=== PATIENT | male | born 1945 | race Caucasian/White ===

== ENCOUNTER 2018-06-24 07:31 | Emergency (ER) | payer MEDICARE, OTHER ==
[~2018-06-24] VITALS: Ht 195.6 cm; Wt 101.8 kg
[2018-06-24 07:38] VITALS: Ht 195.6 cm; Wt 101.8 kg
[2018-06-24] MEDS ORDERED: ADVAIR HFA 230-12 GM INH (07:40)
[2018-06-24] MEDS ORDERED: ZESTRIL40 MG PO (07:40)
[2018-06-24] MEDS ORDERED: CIALIS2.5 MG PO (07:41)
[2018-06-24] MEDS ORDERED: PACERONE200 MG PO ×2 (07:41→08:10)
[2018-06-24] MEDS ORDERED: FLOMAX0.4 MG PO (07:42)
[2018-06-24] MEDS ORDERED: NORVASC5 MG PO (07:42)
[2018-06-24] MEDS ORDERED: NIASPAN500 MG PO (07:43)
[2018-06-24] MEDS ORDERED: SINGULAIR10 MG PO (07:43)
[2018-06-24] MEDS ORDERED: RESTORIL15 MG PO (07:43)
[2018-06-24] MEDS ORDERED: FOLATE0.4 MG PO (07:44)
[2018-06-24] MEDS ORDERED: COLACE50 MG/5 ML PO (07:44)
[2018-06-24] MEDS ORDERED: BAYER CHEWABLE81 MG PO (07:44)
[2018-06-24] MEDS ORDERED: ELIQUIS5 MG PO (08:05)
[2018-06-24 08:07] LABS: BASOPHILS 0.3 % (0-2); HEMATOCRIT 41.9 % (42.0-54.0); HEMOGLOBIN 14.5 g/dL (13.5-17.5); IMMATURE GRANULOCYTES 0.2 % (0-5); MCH 30.1 pg (26.0-34.0); MCHC 34.6 g/dL (31.0-37.0); MCV 87.1 fL (80.0-100.0); MEAN PLATELET VOLUME 9.5 fL (7.4-10.4); MONOCYTES 9.5 % (2-11); PLATELET COUNT 182 10x3/uL (130-400); RBC 4.81 10x6/uL (4.20-6.10); WBC 6.4 10x3/uL (4.8-10.8)
[2018-06-24 08:32] LABS: ALBUMIN 3.5 g/dL (3.4-5.0); ALKALINE PHOSPHATASE 80 U/L (46-116); ALT (SGPT) 26 U/L (10-68); BILIRUBIN - TOTAL 1.12 mg/dL (0.2-1.3); CALC OSMOLALITY 285 mosm/kg (275-300); CALCIUM 8.7 mg/dL (8.5-10.1); CARBON DIOXIDE 29.9 mmol/L (21.0-32.0); CHLORIDE - SERUM 106 mmol/L (98-107); CREATININE - SERUM 0.8 mg/dL (0.6-1.3); GLUCOSE 114 mg/dL (74-106); POTASSIUM - SERUM 3.3 mmol/L (3.5-5.1); SODIUM 144 mmol/L (136-145); UREA NITROGEN 6 mg/dL (7-18); eGFR NON AFRICAN AMERICAN > 90 mL/min (90-120)
[2018-06-24 08:47] LABS: CKMB 3.1 U/L (0.0-3.6); CREATINE KINASE 199 UL (21-232); T4 THYROXIN - FREE 0.95 ng/dL (0.76-1.46); T4 THYROXINE 7.6 ug/dL (4.7-13.3); TROPONIN-I 0.023 ng/mL (0.000-0.060)
[2018-06-24 10:22] VITALS: BP 136/89
== END 2018-06-24 10:22 | disposition home or self-care (01) ==
LOC: D.ER 07:31
PROVIDERS: Emergency Medicine
DX: I48.0 Paroxysmal atrial fibrillation (principal); J44.9 Chronic obstructive pulmonary disease, unspecified

== ENCOUNTER 2018-08-31 11:06 | Inpatient (IN) | payer MEDICARE, OTHER ==
[~2018-08-31] VITALS: Ht 195.6 cm; Wt 109.1 kg
--- NOTE | ~2018-08-31 | HEMODYNAMI ---
PATIENT:RUI MUJICA MEDICAL RECORD: [id number] : 49 LOCATION:[address] [facility] [id number] ADMISSION DATE: 08/31/18 Generatedon:09/02/20189:12 Patient name: URI MUJICA Patient #: [id number] SSN: : 1945 Date of study: 09/02/2018 Page: Of Hemodynamic Procedure Report Patient Data Patient Demographics Procedure consent was obtained First Name: RUI Gender: Male Last Name: GUANAKO : 1945 [facility] Initial: R Age: 72 year(s) Patient #: [id number] Race: Unknown Additional ID: [id number] Contact details Address: [address] [place] [address] [place] State: [place] City: [place] Zip code: [address] Past Medical History Allergies: No known allergies Admission Admission Data Admission Date: 08/31/2018 Admission Time: 14:07 Room #: 2125 Procedure Procedure Types Cath Procedure Diagnostic Procedure LHC LHC w/Coronaries Procedure Description Procedure Date Procedure Date: 09/02/2018 Procedure Start Time: 9:04 Procedure End Time: 9:09 Procedure Staff Name Function Norman Bush MD Performing Physician Emery Thorpe RN Nurse Shayan Moreno RT Scrub Bette Ruiz RT Monitor Procedure Data Cath Procedure Fluoroscopy Diagnostic fluoroscopy Total fluoroscopy Time: 1.1 time: 1.1 min min Diagnostic fluoroscopy Total fluoroscopy dose: 648 dose: 648 mGy mGy Contrast Material Contrast Material Type Amount (ml) Isovue 300 47 Entry Location Entry Primary Successful Side Size Upsize Upsize Entry Closure Wylie ccessful Closure Location (Fr) 1 (Fr) 2 (Fr) Remarks Device Remarks Radial Right 6 Fr Mechanical artery Short Compression Estimated blood loss: 10 ml Diagnostic catheters Device Type Used For End Catheter Placement DIAGNOSTIC Layton 110cm 5 LV Angiography Fr catheter ([id number]) DIAGNOSTIC Layton 110cm 5 Left Coronary Fr catheter ([id number]) Angiography DIAGNOSTIC Layton 110cm 5 Right Coronary Fr catheter (655473) Angiography Procedure Complications No complications Procedure Medications Medication Administration Route Dosage 0.9% NaCl I.V. 100 ml/hr Oxygen etCO2 Nasal cannula 2 l/min Heparin Flush Bag added to field 2 bags (1000units/500ml NS) Lidocaine 2% added to field 20 Radial Cocktail added to field 1 syringe (Verapomil 2mg/Nitro 400mcg/Heparin 1500units) Versed I.V. 2 mg Fentanyl I.V. 100 mcg Radial Cocktail I.A. 1 syringe (Verapomil 2mg/Nitro 400mcg/Heparin 1500units) Benadryl I.V. 50 mg Hemodynamics Rest Heart Rate: 103 (bpm) Snapshots Pre Cath Intra NCS Post Cath Vital Signs Time Heart Resp SPO2 etCO2 NIBP (mmHg) Rhythm Pain Sedation Rate (ipm) (%) (mmHg) Status Level (bpm) 8:51:15 101 20 90 0 152/113(136) A-Fib 0 (11) 10(A) , No pain 8:55:37 99 22 88 0 151/101(131) A-Fib 0 (11) 10(A) , No pain 8:59:53 109 25 90 22.6 137/119(133) A-Fib 0 (11) 10(A) , No pain 9:04:07 110 17 92 11.3 149/93(128) A-Fib 0 (11) 9(A) , No pain 9:08:19 88 26 92 18.1 136/97(112) A-Fib 0 (11) 9(A) , No pain Medications Time Medication Route Dose Verified Delivered Reason Notes Effectiveness by by 8:56:45 0.9% NaCl I.V. 100 Emery Emery Per ml/hr Ila Thorpe physician RN RN 8:56:57 Oxygen etCO2 2 l/min Emery Emery for low 02 Nasal Lorigan Ila sats cannula RN RN 8:57:10 Heparin Flush added 2 bags Emery Emery used for Bag to Lorigan Michelleigan procedure (1000units/500ml field RN RN NS) 8:58:01 Lidocaine 2% added 20ml Emery Emery for local to vial Lorigan Lorigan anesthetic field RN RN 8:58:14 Radial Cocktail added 1 Emery Emery used for (Verapomil to syringe Lorigan Lorigan procedure 2mg/Nitro field RN RN 400mcg/Heparin 1500units) 9:00:23 Benadryl I.V. 50 mg Emery Emery Per Ila rose RN RN 9:01:51 Versed I.V. 2 mg Emery Emery for sedation Ila Thorpe RN RN 9:01:59 Fentanyl I.V. 100 mcg Emery Emery for sedation Ila Thorpe RN RN 9:04:25 Radial Cocktail I.A. 1 Emery Norman for (Verapomil syringe Ila Bush MD vasodilation 2mg/Nitro RN 400mcg/Heparin 1500units) Procedure Log Time Note 8:28:17 Time tracking: Call back (After hours or weekends) 8:28:21 Plan of Care:Hemodynamics will remain stable., Cardiac rhythm will remain stable., Comfort level will be maintained., Respiratory function will remain adequate., Patient/ family verbilizes understanding of procedure., Procedure tolerated without complication., Recovers from procedure without complications.. 8:28:24 Bette Counts RT(R) sent for patient. Start room use. 8:46:35 Patient received from Med II to CCL 1 Alert and oriented. Tansferred to table in Supine position. 8:46:36 Warm blankets applied, and savita hugger turned on for patient comfort. 8:46:36 Correct patient and procedure confirmed by team. 8:46:38 Signed procedure consent form obtained from patient. 8:46:39 ECG and BP/O2 sat monitors applied to patient. 8:46:39 Pre-procedure instructions explained to patient. 8:46:40 Pre-op teaching completed and patient verbalized understanding. 8:46:41 Family in patients room. 8:50:10 Vital chart was started 8:50:13 Rhythm: atrial fibrillation 8:56:45 0.9% NaCl 100 ml/hr I.V. was administered by Emery Thorpe RN; Per physician; 8:56:57 Oxygen 2 l/min etCO2 Nasal cannula was administered by Emery Thorpe RN; for low 02 sats; 8:57:01 Full Disclosure recording started 8:57:09 H&P Date Dictated: 08/31/2018 Within 30 days and on chart.. 8:57:10 Heparin Flush Bag (1000units/500ml NS) 2 bags added to field was administered by Emery Lorigan RN; used for procedure; 8:57:11 Patient NPO since Midnight. 8:57:21 Patient allergic to No known allergies 8:57:24 Is the patient allergic to Iodine/contrast media? No. 8:57:28 Is patient on blood thinner?Yes 8:58:01 Lidocaine 2% 20ml vial added to field was administered by Emery Thorpe RN; for local anesthetic; 8:58:14 Radial Cocktail (Verapomil 2mg/Nitro 400mcg/Heparin 1500units) 1 syringe added to field was administered by Emery Thorpe RN; used for procedure; 8:59:53 Patient diabetic? No. 8:59:56 Previous problem with sedation/anesthesia? No ? 8:59:57 Snore? Yes 8:59:58 Sleep apnea? Yes 8:59:59 Deviated septum? No 8:59:59 Opens mouth fully? Yes 9:00:00 Sticks out tongue? Yes 9:00:06 Airway obstruction? Yes BRONCHITIS 9:00:09 Dentures? No ? 9:00:21 XARELTO 08/31/18 9:00:23 Benadryl 50 mg I.V. was administered by Emery Thorpe RN; Per physician; 9:00:25 Pre procedure: right dorsailis pedis pulse 2+ Normal; easily identifiable; not easily obliterated 9:00:27 Modified Solomon's test Ulnar < 7 seconds 9:00:28 Patient pain scale 0/10 ?. 9:00:38 IV patent on arrival in right antecubital with 0.9% NaCl at O. 9:00:40 Lab results completed and on chart. 9:00:44 Right Radial & Right Groin area was prepped with chlora-prep and draped in sterile fashion 9:00:44 Alarms reviewed by R. N. 9:00:45 Sharps counted by scrub and verified by R.N. 9:00:45 Final Timeout: patient, procedure, and site verified with staff and physician. All members of the team are in agreement. 9:00:47 Right Radial site verified by team. 9:00:50 Fire Safety Assessment: A--An alcohol-based skin anteseptic being used preoperatively., C--Open oxygen or nitrous oxide is being used., D--An ESU, laser, or fiber-optic light is being used. 9:00:53 Physical assessment completed. ASA score P 2 - A patient with mild systemic disease as per Norman Bush MD. 9:00:56 Sedation plan: IV Moderate Sedation Medication:Versed, Fentanyl 9:00:59 Use device set Radial Dx or PCI 9:00:59 ACIST Syringe (83514) opened to sterile field. 9:01:00 Medline Cath Pack ([id number]) opened to sterile field. 9:01:00 Bag Decanter (2002S) opened to sterile field. 9:01:01 DIAGNOSTIC WIRE .035 260cm J wire (581578) opened to sterile field. 9:01:01 ACIST Hand Control (28901) opened to sterile field. 9:01:01 ACIST Manifold (39959) opened to sterile field. 9:01:02 Tegaderm 4 x 4 (1626W) opened to sterile field. 9:01:02 MBrace Wrist Support ([id number]) opened to sterile field. 9:01:03 SHEATH 6FR Slender (21-0837) opened to sterile field. 9:01:51 Versed 2 mg I.V. was administered by Emery Thorpe RN; for sedation; 9::59 Fentanyl 100 mcg I.V. was administered by Emery Thorpe RN; for sedation; 9:04:00 Zero performed for pressure channel P1 9:04:04 Procedure started. 9:04:11 Local anesthetic to right radial artery with Lidocaine 2% by Norman Bush MD.INITIAL ACCESS ONLY 9:04:19 A 6 Fr Short sheath was inserted into the Right Radial artery 9:04:25 Radial Cocktail (Verapomil 2mg/Nitro 400mcg/Heparin 1500units) 1 syringe I.A. was administered by Norman Bush MD; for vasodilation; 9:04:26 A DIAGNOSTIC Layton 110cm 5 Fr catheter ([id number]) was advanced over the wire and used for LV Angiography. 9:05:01 Baseline sample Acquired. 9:05:37 LV gram done using CARRILLO 9:05:43 EF : 40 % 9:05:47 Injector settings: Ml/sec: 5, Volume: 15, 9:05:53 A DIAGNOSTIC Layton 110cm 5 Fr catheter (586809) was advanced over the wire and used for Left Coronary Angiography. 9:07:20 A DIAGNOSTIC Layton 110cm 5 Fr catheter ([id number]) was advanced over the wire and used for Right Coronary Angiography. 9:07:22 Catheter removed. 9:07:34 Sheath removed intact; hemostasis achieved with Mechanical Compression to the Right Radial artery. 9:07:36 Procedure ended.(Physican Out) 9:07:45 Fluoroscopy time 01.10 minutes. 9:07:53 Fluoroscopy dose: 648 mGy 9:07:53 Flurop Dose total: 648 9:07:57 Contrast amount:Isovue 300 47ml. 9:07:59 Sharps counted by scrub and verified by R.N. 9:08:00 TR band inflated with 12cc of air. 9:08:02 Insertion/operative site no bleeding no hematoma. 9:08:06 Post right radial artery:stable, clean and dry 9:08:08 Post Procedure Pulses reassessed and unchanged 9:08:12 Post-procedure physical assessment completed. ASA score P 2 - A patient with mild systemic disease as per Norman Bush MD. 9:08:15 Post procedure rhythm: unchanged. 9:08:20 Estimated blood loss: 10 ml 9:08:22 Post procedure instruction explained to patient.Patient verbalizes understanding. 9:08:23 Patient needs reinforcement of post procedure teaching. 9:08:43 Procedure Complication : No complications 9:08:45 See physician's report for complete and final results. 9:09:00 TR BAND Standard ([id number]) opened to sterile field. 9:09:14 Procedure and supply charges have been captured, reviewed, submitted and are correct. 9:09:21 Vital chart was stopped 9:09:22 Report given to PCU. 9:09:25 Patient transfered to PCU with Bed. 9:09:27 Procedure ended. 9:09:27 Full Disclosure recording stopped 9:09:30 End room use (Document Last) Device Usage Item Name Manufacture Quantity Catalog Hospital Part Current Minimal Lot# / Number Charge Number Stock Stock Serial# Code ACIST Acist 1 07473 714247 925283 096974 20 Syringe [employer] (17928) Systems Inc Medline Medline 1 [id number] 080571 53966 470840 5 Cath Pack ([id number]) Bag Microtek 1 860059 64870 106904 5 Decanter Medical Inc. (2002S) DIAGNOSTIC [place] 1 453751 705205 838944 945449 30 WIRE .035 260cm J wire (938489) ACIST Hand Acist 1 28791 923811 418493 277994 5 Control Medical (69076) Systems Inc ACIST Acist 1 53248 445302 105864 698749 5 Manifold Medical (94724) Systems Inc Tegaderm 4 3M 1 1626W 487300 329140 170940 5 x 4 (1626W) MBrace Advanced 1 140-0250-00 979467 72957 663192 5 Wrist Vascular Support Dynamics ([id number]) SHEATH 6FR Terumo 1 [id number] 439587 317625 838050 5 Slender (80-1060) DIAGNOSTIC Terumo 1 40-8779 373231 980180 840320 5 Layton 110cm 5 Fr catheter (995780) TR BAND Terumo 1 VLX75-PMQ 873496 295477 301300 40 Standard ([id number]) Signature Audit [place] Stage Time Signature Unsigned Intra-Procedure 09/02/2018 Bette 9:12:18 AM Counts RT(R) Signatures Monitor : Bette Signature : Counts RT Date : Time : [place] [address] [place] [address]
[~2018-08-31 11:06] MED LIST: ADVAIR HFA 230-12 GM INH; BAYER CHEWABLE81 MG PO; CIALIS2.5 MG PO; COLACE50 MG/5 ML PO; ELIQUIS5 MG PO; FLOMAX0.4 MG PO; FOLATE0.4 MG PO; NIASPAN500 MG PO; NORVASC5 MG PO; PACERONE200 MG PO; RESTORIL15 MG PO; SINGULAIR10 MG PO; ZESTRIL10 MG PO
[2018-08-31] MEDS ORDERED: RABEPRAZOLE (11:20)
[2018-08-31] MEDS ORDERED: TOPROL XL100 MG PO ×2 (11:20→11:22)
[2018-08-31] MEDS ORDERED: XARELTO15 MG PO (11:20)
[2018-08-31 12:17] LABS: BASOPHILS 0.3 % (0-2); EOSINOPHILS 2.6 % (0-7); IMMATURE GRANULOCYTES 0.3 % (0-5); LYMPHOCYTES 12.6 % (15-50); MCH 29.1 pg (26.0-34.0); MCHC 33.3 g/dL (31.0-37.0); MCV 87.2 fL (80.0-100.0); MEAN PLATELET VOLUME 9.7 fL (7.4-10.4); MONOCYTES 11.5 % (2-11); NEUTROPHILS 72.7 % (40-80); RBC 4.13 10x6/uL (4.20-6.10); RDW 13.3 % (11.5-14.5); WBC 7.8 10x3/uL (4.8-10.8)
[2018-08-31 12:19] LABS: PLATELET COUNT 345 10x3/uL (130-400)
[2018-08-31 12:23] LABS: ALBUMIN 2.6 g/dL (3.4-5.0); ALKALINE PHOSPHATASE 98 U/L (46-116); ALT (SGPT) 58 U/L (10-68); CALC OSMOLALITY 285 mosm/kg (275-300); CALCIUM 8.2 mg/dL (8.5-10.1); CHLORIDE - SERUM 107 mmol/L (98-107); CREATININE - SERUM 0.8 mg/dL (0.6-1.3); GLUCOSE 137 mg/dL (74-106); POTASSIUM - SERUM 3.8 mmol/L (3.5-5.1); PROTEIN - SERUM 6.6 g/dL (6.4-8.2); SODIUM 142 mmol/L (136-145); UREA NITROGEN 14 mg/dL (7-18); eGFR NON AFRICAN AMERICAN > 90 mL/min (90-120)
[2018-08-31 12:35] LABS: CKMB 2.6 U/L (0.0-3.6); CREATINE KINASE 106 UL (21-232); PRO BNP 2850 pg/mL (0-125)
[2018-08-31 12:36] LABS: TROPONIN-I < 0.017 ng/mL (0.000-0.060)
--- NOTE | 2018-08-31 14:55 | NUR ---
TRANSFERED FROM ER BY W/Trish MIKE TO ROOM. CALL LIGHT IN REACH. WILL CONT. PLAN OF CARE.
[2018-08-31] MEDS ORDERED: AMIODARONE HCL200 MG PO (15:20)
[2018-08-31 15:29] VITALS: BP 145/104; BMI 28.5
--- NOTE | 2018-08-31 15:54 | NUR ---
UP AMBULATING IN ROOM. DOES NOT WANT SCDS AT THIS TIME.
[2018-08-31 15:57] VITALS: BP 130/92
--- NOTE | 2018-08-31 19:33 | NUR ---
REPORT RECEIVED. PT SITTING UP IN BEDSIDE CHAIR WITH EYES OPEN, RR EVEN AND UNLABORED. BED IN LOW POSITION. NO S/S OF DISTRESS NOTED. INTRODUCED SELF TO PT. PT DENIES FURTHER NEEDS. CALL LIGHT IN REACH. WILL CTM.
[2018-08-31 20:00] VITALS: BP 147/106
--- NOTE | 2018-08-31 21:59 | NUR ---
ADMINISTERED ORDERED ANALGESIC FOR COMPLAINTS OF PAIN IN THE BACK RELATED TO A MUSCLE STRAIN, PT STATES PAIN OF A 6 ON A SCALE OF 0-10.
[2018-09-01 00:05] VITALS: BP 136/97
--- NOTE | 2018-09-01 00:38 | NUR ---
A-FLUTTER PER CM HR 98. VSS. PT RESTING WITH EYES CLOSED. RESP EVEN AND REGULAR. SR UP X2, CALL LIGHT WITHIN REACH.
[2018-09-01 04:00] VITALS: BP 150/101
--- NOTE | 2018-09-01 04:19 | NUR ---
PT LYING IN BED WITH EYES CLOSED, RR EVEN AND UNLABORED. BED IN LOW POSITION. NO S/S OF DISTRESS NOTED. CPAP IN PLACE. CALL LIGHT IN REACH. WILL CTM.
--- NOTE | 2018-09-01 05:36 | NUR ---
ADMINISTERED ORDERED ANALGESIC FOR COMPLAINTS OF PAIN IN BACK, PT STATES PAIN OF A 7 ON A SCALE OF 0-10. WILL CTM.
[2018-09-01 06:00] LABS: BASOPHILS 0.3 % (0-2); EOSINOPHILS 3.6 % (0-7); HEMATOCRIT 36.4 % (42.0-54.0); IMMATURE GRANULOCYTES 0.3 % (0-5); LYMPHOCYTES 21.6 % (15-50); MCH 28.8 pg (26.0-34.0); MCV 87.3 fL (80.0-100.0); MEAN PLATELET VOLUME 9.9 fL (7.4-10.4); MONOCYTES 12.4 % (2-11); NEUTROPHILS 61.8 % (40-80); PLATELET COUNT 353 10x3/uL (130-400); RBC 4.17 10x6/uL (4.20-6.10); RDW 13.5 % (11.5-14.5); WBC 6.9 10x3/uL (4.8-10.8)
[2018-09-01 06:23] LABS: ALBUMIN 2.5 g/dL (3.4-5.0); ALKALINE PHOSPHATASE 95 U/L (46-116); ALT (SGPT) 63 U/L (10-68); BILIRUBIN - TOTAL 0.98 mg/dL (0.2-1.3); CALC OSMOLALITY 281 mosm/kg (275-300); CALCIUM 8.1 mg/dL (8.5-10.1); CARBON DIOXIDE 24.4 mmol/L (21.0-32.0); CHLORIDE - SERUM 105 mmol/L (98-107); GLUCOSE 93 mg/dL (74-106); POTASSIUM - SERUM 3.5 mmol/L (3.5-5.1); PROTEIN - SERUM 6.5 g/dL (6.4-8.2); SODIUM 141 mmol/L (136-145); UREA NITROGEN 14 mg/dL (7-18); eGFR NON AFRICAN AMERICAN 78 mL/min (90-120)
--- NOTE | 2018-09-01 08:14 | NUR ---
PATIENT ALERT AND ORIENTED. SITTING UP IN CHAIR EATTING BREAKFAST AT THIS TIME. DENIES ANY NEEDS AT THIS TIME.
--- NOTE | 2018-09-01 08:43 | NUR ---
PATIENT IS ASKING WHY HIS XERELTO WAS HELD. WILL CALL
[2018-09-01 09:57] VITALS: BP 122/77
--- NOTE | 2018-09-01 10:53 | NUR ---
PATIENT IS ALERT AND AWAKE SITTING UP IN A CHAIR. PATIENT ASKED WHY HIS XERELTO HAS BEEN HELD. I ASKED DR ABDALLA IN THE [facility] AND HE SAID YES HE HELD IT BECAUSE PATIENT IS GOING TO THE [facility] TOMORROW.
--- NOTE | 2018-09-01 11:07 | NUR ---
RN ROUNDS. PATIENT SITTING UP TO CHAIR AT BEDSIDE. RESP EVEN AND UNLABORED. LOTS OF VISITORS IN ROOM AT THIS TIME. PATIENT ON TELEMETRY WITH A HEARTRATE OF 105 AT THIS TIME.
[2018-09-01 12:46] VITALS: BP 132/82
[2018-09-01 15:19] VITALS: Ht 195.6 cm; Wt 109.1 kg
--- NOTE | 2018-09-01 15:59 | NUR ---
CONSENT SIGNED AND IN CHART. NPO AFTER MIDNIGHT TONIGHT IN PREPARATION FOR GOING TO THE [employer]ES[employer] ADMINIST[facility] TOMORROW WITH DR ABDALLA.
[2018-09-01 17:45] VITALS: BP 130/83
[2018-09-01 20:00] VITALS: BP 117/60
--- NOTE | 2018-09-01 20:15 | NUR ---
EVENING ROUNDS COMPLETED. REPORT RECEIVED. PT SITTING UP IN BEDSIDE CHAIR WITH EYES OPEN, RR EVEN AND UNLABORED. NO S/S OF DISTRESS NOTED. INTRODUCED SELF TO PT. PT DENIES FURTHER NEEDS AT THIS TIME. CALL LIGHT IN REACH. WILL CTM.
--- NOTE | 2018-09-01 21:35 | NUR ---
ADMINISTERED ORDERED ANALGESIC FOR COMPLAINTS OF PAIN IN THE BACK, PT STATES PAIN IS A 7 ON A SCALE OF 0-10.
[2018-09-02] VITALS: BP 132/90
--- NOTE | 2018-09-02 03:34 | NUR ---
PT LYING FLAT IN BED WITH EYES OPEN, CPAP IN PLACE. DENIES FURTHER NEEDS. PAIN MEDICATION HAS BEEN EFFECTIVE. PT HAS STATED HAVING DIFFICULTY IN SLEEPING IN DAYS PRIOR, SAYS HE JUST CANT SEEM TO FALL ASLEEP. WILL PASS ON TO DAY SHIFT. CALL LIGHT IN REACH. WILL CTM.
[2018-09-02 04:00] VITALS: BP 137/92
--- NOTE | 2018-09-02 05:08 | NUR ---
I HAVE REVIEWED AND AGREE WITH ROTARY DRILLER ASSESSMENT.
--- NOTE | 2018-09-02 05:20 | NUR ---
ADMINISTERED ORDERED ANALGESIC FOR COMPLAINTS OF BACK PAIN, PT STATES PAIN OF A 7 ON A SCALE OF 0-10.
[2018-09-02 05:43] LABS: BASOPHILS 0.3 % (0-2); EOSINOPHILS 3.4 % (0-7); HEMATOCRIT 35.6 % (42.0-54.0); HEMOGLOBIN 11.7 g/dL (13.5-17.5); IMMATURE GRANULOCYTES 0.2 % (0-5); LYMPHOCYTES 25.2 % (15-50); MCH 28.8 pg (26.0-34.0); MCHC 32.9 g/dL (31.0-37.0); MCV 87.7 fL (80.0-100.0); MEAN PLATELET VOLUME 9.7 fL (7.4-10.4); MONOCYTES 12.2 % (2-11); NEUTROPHILS 58.7 % (40-80); PLATELET COUNT 367 10x3/uL (130-400); RBC 4.06 10x6/uL (4.20-6.10); RDW 13.4 % (11.5-14.5); WBC 6.2 10x3/uL (4.8-10.8)
[2018-09-02 06:33] LABS: ALBUMIN 2.4 g/dL (3.4-5.0); ALKALINE PHOSPHATASE 91 U/L (46-116); ALT (SGPT) 55 U/L (10-68); BILIRUBIN - TOTAL 0.67 mg/dL (0.2-1.3); CALC OSMOLALITY 283 mosm/kg (275-300); CARBON DIOXIDE 26.3 mmol/L (21.0-32.0); CHLORIDE - SERUM 105 mmol/L (98-107); CREATININE - SERUM 0.8 mg/dL (0.6-1.3); GLUCOSE 96 mg/dL (74-106); POTASSIUM - SERUM 3.2 mmol/L (3.5-5.1); PROTEIN - SERUM 6.3 g/dL (6.4-8.2); SODIUM 142 mmol/L (136-145); UREA NITROGEN 16 mg/dL (7-18); eGFR NON AFRICAN AMERICAN > 90 mL/min (90-120)
--- NOTE | 2018-09-02 08:00 | NUR ---
ASSESSMENT COMPLETED. ALERT AND ORIENTED.TELEMERTY SHOWS AFIB. NPO FOR CATH
[2018-09-02 08:33] VITALS: BP 131/91
--- NOTE | 2018-09-02 09:00 | NUR ---
TO [facility]
--- NOTE | 2018-09-02 10:30 | NUR ---
BACK FROM WARM IN WORKER. TR BAND TO RIGHT WRIST. FINGERS WARM, NO SWELLING OR BLEEDING V/S STABLE. WILL MONITOR
--- NOTE | 2018-09-02 13:15 | NUR ---
RN ROUNDING DONE AND I AGREE WITH ASSESSMENT WITH ESTRELLA KIM LPN. PATIENT IS UCAF, HR 103.
[2018-09-02 13:26] VITALS: BP 139/82
[2018-09-02] MEDS ORDERED: LISINOPRIL40 MG PO (14:43)
[2018-09-02] MEDS ORDERED: CARDIZEM CD180 MG PO (14:44)
[2018-09-02] MEDS ORDERED: BETAPACE 120 M120 MG PO (14:44)
--- NOTE | 2018-09-02 15:44 | NUR ---
PT DISCHARGED. IV DCD WITH TIP INTACT. RIGHT WRIST CATH SITE WITH NO BLEEDING OR SWELLING. INSTRUCTIONS GIVEN TO PT AND . TO PRIVATE CAR PER WHEELCHAIR
--- NOTE | 2018-09-04 11:18 | DS ---
PATIENT:RUI THRASHER :49 MEDICAL RECORD: [id number] DISCHARGE SUMMARY ADMISSION DATE: 08/31/18 DISCHARGE DATE: 09/02/18 DATE OF DISCHARGE: 09/02/2018. DIAGNOSES: 1. Shortness of breath. 2. Dyspnea on exertion. 3. Atrial fibrillation. 4. Hypertension. HOSPITAL COURSE: Mr. Thrasher presents with shortness of breath, dyspnea on exertion, found to be in atrial fibrillation. He was recently started on amiodarone and Xarelto. His rates were not well controlled. He did undergo cardiac catheterization revealing no coronary artery disease. Medical management was started on treatment of the atrial fibrillation. He was changed to sotalol 120 mg b.i.d. and diltiazem 240 every day, much better rate control, symptom control as well and his Xarelto was restarted. He will follow up with [facility] in 2 weeks. If he remains in atrial fibrillation, we will proceed with DC cardioversion. TRANSINT:[id number] Voice Confirmation ID: [id number] DOCUMENT ID: [id number] RADHA ABDALLA MD at 1118 CC: [id number] DICTATION DATE: 09/02/18 0911 COMMUNICATIONS ATTENDANT: 09/03/18 0037 DIS IN 09/02/18 [place] [id number] [place] [address]
--- NOTE | 2018-09-04 11:18 | OP ---
PATIENT NAME: RUI MUJICA MEDICAL RECORD: [id number] :49 LOCATION:D.M2 D.2125 ADMISSION DATE:08/31/18 SURGEON: RADHA ABDALLA MD DATE OF OPERATION: 09/02/2018 PROCEDURES: 1. Left heart catheterization. 2. Selective coronary angiography. 3. Left ventriculogram. INDICATION: Shortness of breath, dyspnea on exertion, atrial fibrillation, abnormal ECG. PROCEDURE IN DETAIL: After informed consent was obtained and after a detailed description of the risks, benefits as well as alternative therapies, the patient elected to proceed with angiogram and heart catheterization. The right radial area was prepped and draped in normal sterile fashion. Right radial artery was cannulated via modified Seldinger technique with placement of 5-Yoruba sheath. All catheters exchanged through this sheath. FINDINGS: Left ventriculogram was performed in standard 30-degree CARRILLO view, reveals global hypokinesis throughout all segments. Overall ejection fraction 40%. SELECTIVE CORONARY ANGIOGRAPHY: Left main, left anterior descending, left circumflex, and right coronary artery are all smooth-walled vessels with no angiographic evidence of coronary artery disease. OVERALL IMPRESSION: Nonischemic cardiomyopathy with atrial fibrillation. No coronary disease is present. Center medical management on treatment of the atrial fibrillation and cardiomyopathy. TRANSINT:[id number] Voice Confirmation ID: [id number] DOCUMENT ID: [id number] RADHA ABDALLA MD at 1118 CC: [id number] DICTATION DATE: 09/02/18 09 CRIMINAL ANALYST: 09/02/18 1012 DIS IN 09/02/18 [facility] [address] [place] [address]
--- NOTE | 2018-09-04 11:18 | CN ---
PATIENT NAME:RUI MUJICA MEDICAL RECORD: [id number] : [birth year] LOCATION:D. D.2125 ADMIT DATE: 08/31/18 ACCOUNT: [id number] CONSULTING PHYSICIAN: RADHA ABDALLA MD REFERRING PHYSICIAN: RUI HUNTER MD DATE OF CONSULTATION: 08/31/2018 DIAGNOSES: 1. Shortness of breath and dyspnea on exertion. 2. Chest pain compatible with angina. 3. Pneumonia. 4. Pulmonary edema. 5. Hypertension. 6. Atrial fibrillation. 7. Smoking history. 8. Chronic obstructive pulmonary disease. HISTORY OF PRESENT ILLNESS: This is a gentleman who presents with increasing shortness of breath and some episodes of chest discomfort as well. He was seen in our office with new-onset atrial fibrillation given amiodarone and Xarelto. He has continued to have a rapid ventricular response. The amiodarone was doubled. He remains in atrial fibrillation with heart rates in the 120 range. He previously was on metoprolol for blood pressure. He is also on niacin for hyperlipidemia. He carries a diagnosis of coronary artery disease but has not had a heart stent in the past and has not had an evaluation from the standpoint of ischemic heart disease for many years. PHYSICAL EXAMINATION: GENERAL APPEARANCE: Well nourished, well developed, appears stated age. Level of distress, comfortable. PSYCHIATRIC: Mental status, alert, normal affect. Orientation, oriented to time, place and person. EYES: Lids and conjunctiva, noninjected. No discharge, no pallor. ENT: Lips, teeth, gums, normal dentition. Oropharynx, no cyanosis, no pallor. NECK: Carotid arteries, bilateral normal upstroke, no bruits, no thrills. JUGULAR VEINS: No jugular venous pressure or distention. CERVICAL LYMPH NODES: Nontender, nonenlarged. THYROID: Not enlarged. Nontender. No nodules. LUNGS: Respiratory effort, unlabored. CHEST: Normal curvature. No thoracic deformity. No chest wall tenderness. Percussion, resonant. Auscultation, clear. No wheezes, no rales, no rhonchi. CARDIOVASCULAR: Precordial exam, nondisplaced. No heaves or pericardial thrills. Rate and rhythm, regular. Heart sounds, normal S1, normal S2. No S3, no gallop, no rub. Systolic murmur, not heard. Diastolic murmur, not heard. EXTREMITIES: No cyanosis, no edema. Peripheral pulses, full and equal in all extremities, except as noted. No bruits appreciated. ABDOMEN: Soft, nondistended. Normal aorta. No bruit. Nontender. No masses. Liver, nontender, no hepatomegaly. Spleen, nontender, no splenomegaly. MUSCULOSKELETAL: No joint tenderness. No joint swelling. No erythema. NEUROLOGICAL: Normal gait, normal strength, normal tone. SKIN: Warm and dry. OVERALL IMPRESSION: Atrial fibrillation with rapid ventricular response. At this time, would discontinue the amiodarone, I will put him on sotalol 120 mg b.i.d. This should do a much better job with rate control. We will continue CONSULT REPORT [id number] RUI MUJICA the Xarelto and plan for DC cardioversion only after transesophageal echo or he has been on Xarelto for 3 weeks. Ischemic heart disease - his shortness of breath is way out of proportion, so we would consider just with the atrial fibrillation pairing this with the chest discomfort; he apparently will have hemodynamically significant coronary artery disease, we will proceed with coronary angiography on Monday a.m. Pneumonia - he is being treated for possible pneumonia with Zithromax and Rocephin by the primary care, will continue that. TRANSINT:[id number] Voice Confirmation ID: [id number] DOCUMENT ID: [id number] RADHA ABDALLA MD at 1118 CC: [id number] DICTATION DATE: 08/31/18 1351 HYDRAULIC RUBBISH COMPACTOR MECHANIC: 08/31/18 2250 DIS IN 09/02/18 [id number] [place] [address]
--- NOTE | 2018-09-05 09:22 | MORECARE ---
CASE MANAGEMENT DISCHARGE SUMMARY PATIENT: RUI MUJICA UNIT: [id number] ADM DATE: 08/31/18 AGE: 72 : [birth year] SEX: M ROOM/BED: D.6665 AUTHOR: BORIS BROUSSARD PHYSICIAN: REFERRING PHYSICIAN: RUI HUNTER MD DATE OF SERVICE: 09/05/18 Discharge Plan Patient Name: RUI MUJICA [facility] [facility] 1945 Planned Disposition: Home Anticipated Discharge Date: 09/02/18 Discharge Date: 09/02/2018 Expected LOS: 2 Initial Reviewer: [email or web address] Initial Review Date: 09/05/2018 Generated: 09/05/18 10:22 am Patient Name: RUI MUJICA Page [id number] at 0922 All edits/amendments must be made on the electronic document DICTATION DATE: 09/05/18921 CLINICAL EVALUATOR: SIM 09/05/18921 RPT#: [id number] DC DATE:09/02/18 STATUS: DIS IN [facility] [address] [place] [address] END OF REPORT
== END 2018-09-02 15:49 | disposition home or self-care (01) | DRG 286 ==
LOC: D.ER 11:06 → D.M2 14:07
PROVIDERS: Family Medicine; Internal Medicine Interventional Cardiology; ADMIT Family Medicine
PROC: B2151ZZ Fluoroscopy of Left Heart using Low Osmolar Contrast (ICD-10-PCS; 2018-09-02)
PROC: 4A023N7 Measurement of Cardiac Sampling and Pressure, Left Heart, Percutaneous Approach (ICD-10-PCS; 2018-09-02)
PROC: B2111ZZ Fluoroscopy of Multiple Coronary Arteries using Low Osmolar Contrast (ICD-10-PCS; principal; 2018-09-02 08:28)
DX: I48.91 Unspecified atrial fibrillation (principal); J15.6 Pneumonia due to other Gram-negative bacteria; J96.01 Acute respiratory failure with hypoxia; J44.0 Chronic obstructive pulmonary disease with (acute) lower respiratory infection; R94.31 Abnormal electrocardiogram [ECG] [EKG]; I42.9 Cardiomyopathy, unspecified; I11.0 Hypertensive heart disease with heart failure; I50.9 Heart failure, unspecified; G47.33 Obstructive sleep apnea (adult) (pediatric)

== ENCOUNTER 2018-09-12 10:04 | Outpatient (CLI) | payer MEDICARE, OTHER ==
[~2018-09-12] VITALS: Ht 195.6 cm; Wt 101.8 kg
--- NOTE | ~2018-09-12 | HEMODYNAMI ---
PATIENT:RUI MUJICA MEDICAL RECORD: [id number] : 49 LOCATION:[facility] ADMISSION DATE: 09/12/18 Generatedon:09/12/201812:25 Patient name: RUI MUJICA Patient #: [id number] SSN: : 1945 Date of study: 09/12/2018 Page: Of Hemodynamic Procedure Report Patient Data Patient Demographics Procedure consent was obtained First Name: RUI Gender: Male Last Name: GUANAKO : 1945 [facility] Initial: R Age: 72 year(s) Patient #: [id number] Race: Unknown Additional ID: [id number] Contact details Address: [address] State: [place] City: [place] Zip code: [address] Past Medical History Allergies: No known allergies Admission Admission Data Admission Date: 09/12/2018 Admission Time: 10:04 Lab Results Lab Result Date: 09/12/2018 Lab Result Time: 0:00 Biochemistry Name Units Result Min Max BUN mg/dl 12 --(-*--)-- 7 18 Creatinine mg/dl 0.9 --(-*--)-- 0.6 1.3 CBC Name Units Result Min Max Hemoglobin g/dl 12.6 -*(----)-- 13.5 17.5 Procedure Procedure Types Cath Procedure Diagnostic Procedure Cardioversion External Procedure Description Procedure Date Procedure Date: 09/12/2018 Procedure Start Time: 12:21 Procedure End Time: 12:22 Procedure Staff Name Function Norman Bush MD Performing Physician Day Key RT Monitor Mariana Coyne RN Nurse Procedure Data Cath Procedure Fluoroscopy Diagnostic fluoroscopy Total fluoroscopy Time: 0 time: 0 min min Diagnostic fluoroscopy Total fluoroscopy dose: 0 dose: 0 mGy mGy Contrast Material Contrast Material Type Amount (ml) Isovue 300 0 Estimated blood loss: 0 ml Procedure Complications No complications Procedure Medications Medication Administration Route Dosage 0.9% NaCl I.V. 100 ml/hr Oxygen etCO2 Nasal cannula 2 l/min Refer to Anesthesia Notes for Sedation Medications Hemodynamics Rest HGB: 12.6 (g/dl) Heart Rate: 105 (bpm) Snapshots Pre Cath Intra NCS Post Cath Vital Signs Time Heart Resp SPO2 etCO2 NIBP (mmHg) Rhythm Pain Sedation Rate (ipm) (%) (mmHg) Status Level (bpm) 12:05:53 105 13 97 33.4 149/113(133) A-Fib 0 (11) 10(A) , No pain 12:10:13 88 16 96 23.5 141/110(129) A-Fib 0 (11) 10(A) , No pain 12:14:33 105 15 97 22 143/111(133) A-Fib 0 (11) 10(A) , No pain 12:18:53 105 13 97 15.9 152/110(136) A-Fib 0 (11) 5(A) , No pain 12:23:17 58 17 93 0 131/90(109) SB 0 (11) 10(A) , No pain 12:24:41 64 19 94 0 125/87(102) SB 0 (11) 10(A) , No pain Medications Time Medication Route Dose Verified Delivered Reason Notes Effective ness by by 12:07:04 0.9% NaCl I.V. 100 Norman Hoppera used for ml/hr Rachelle Coyne radiology clerk 12:07:12 Oxygen etCO2 2 Norman Aguiaryla used for Nasal l/min Rachelle Coyne procedure cannula RN 12:07:16 Refer to Norman Peña Anesthesia Rachelle Coyne Notes for RN Sedation Medications Procedure Log Time Note 11:45:52 Mariana Coyne RN sent for patient. Start room use. 12:00:40 Diagnostic Cath Status : Elective 12:01:02 Time tracking: Regular hours (M-F 7:00 - 5:00) 12:01:06 Plan of Care:Hemodynamics will remain stable., Cardiac rhythm will remain stable., Comfort level will be maintained., Respiratory function will remain adequate., Patient/ family verbilizes understanding of procedure., Procedure tolerated without complication., Recovers from procedure without complications.. 12:01:11 Patient received from Pre/Post Procedure Room to CCL 1 Alert and oriented. Tansferred to table in Supine position. 12:01:12 Warm blankets applied, and savita hugger turned on for patient comfort. 12:01:13 Correct patient and procedure confirmed by team. 12:01:14 Signed procedure consent form obtained from patient. 12:01:18 ECG and BP/O2 sat monitors applied to patient. 12:01:58 Vital chart was started 12:02:48 Baseline sample Acquired. 12:04:15 Baseline sample Acquired. 12:05:06 Baseline sample Acquired. 12:05:15 Rhythm: atrial fibrillation 12:05:17 Full Disclosure recording started 12:05:26 H&P Date Dictated: 09/12/2018 Within 30 days and on chart., H&P Addendum completed by physician on day of procedure. (MUST COMPLETE FOR ALL OUTPATIENTS). 12:05:27 Pre-procedure instructions explained to patient. 12:05:28 Pre-op teaching completed and patient verbalized understanding. 12:05:30 Family in waiting room. 12:05:31 Patient NPO since Midnight. 12:05:33 Is the patient allergic to Iodine/contrast media? No. 12:05:34 Was the patient premedicated? No 12:05:35 Is patient on blood thinner?Yes 12:05:39 ACC The patient was administered the following blood thiners within the last 24 hours: Xarelto 12:05:41 Patient diabetic? No. 12:05:44 Previous problem with sedation/anesthesia? No ? 12:05:46 Snore? Yes 12:05:56 Sleep apnea? Yes 12:06:01 Deviated septum? No 12:06:01 Opens mouth fully? Yes 12:06:02 Sticks out tongue? Yes 12:06:03 Airway obstruction? No ? 12:06:06 Dentures? No ? 12:06:12 Pre procedure: right dorsailis pedis pulse 2+ Normal; easily identifiable; not easily obliterated 12:06:14 Pre procedure: left dorsailis pedis pulse 2+ Normal; easily identifiable; not easily obliterated 12:06:16 Patient pain scale 0/10 ?. 12:06:33 IV patent on arrival in left forearm with 0.9% NaCl at [facility]. 12:06:36 Lab results completed and on chart. 12:06:41 Alarms reviewed by R. N. 12:06:41 Sharps counted by scrub and verified by R.N. 12:07:04 0.9% NaCl 100 ml/hr I.V. was administered by Mariana Coyne RN; used for procedure; 12:07:12 Oxygen 2 l/min etCO2 Nasal cannula was administered by Mariana Coyne RN; used for procedure; 12::16 Refer to Anesthesia Notes for Sedation Medications was administered by Mariana Coyne RN; ; 12::43 NEHEMIAS Ventura here and present to administer TIVA 12::49 Quick combo pads placed on patients chest and back. 12::39 Lab Result : Creatinine 0.9 mg/dl ::39 Lab Result : BUN 12 mg/dl :39 Lab Result : Hemoglobin 12.6 g/dl 12:: Physician arrived :: --------ALL STOP TIME OUT------ : Final Timeout: patient, procedure, and site verified with staff and physician. All members of the team are in agreement. 12:15:33 Fire Safety Assessment: A--An alcohol-based skin anteseptic being used preoperatively., C--Open oxygen or nitrous oxide is being used., D--An ESU, laser, or fiber-optic light is being used. 12:15:36 Physical assessment completed. ASA score P 2 - A patient with mild systemic disease as per Norman Bush MD. 12:15:48 Sedation plan: TIVA Medication:Propofol 12:19:18 Procedure started. 12:20:28 Defibrillator synced and charged to 275 Joules. 12:20:30 Shock delivered. 12:21:10 Patient cardioverted to sinus rhythm . 12:21:41 Procedure ended.(Physican Out) 12::55 Fluoroscopy time 00.00 minutes. 12::57 Fluoroscopy dose: 0 mGy 12::57 Flurop Dose total: 0 12:22:02 Contrast amount:Isovue 300 0ml. 12:22:04 Sharps counted by scrub and verified by R.N. 12:22:09 Post procedure rhythm: sinus rhythm 12::26 Estimated blood loss: 0 ml 12::28 Post procedure instruction explained to patient.Patient verbalizes understanding. 12::29 Patient needs reinforcement of post procedure teaching. 12::40 Procedure and supply charges have been captured, reviewed, submitted and are correct. 12:22:44 Procedure Complication : No complications 12:22:46 Vital chart was stopped 12:22:47 See physician's report for complete and final results. 12:22:50 Report given to Pre/Post Procedure Room. 12:22:52 Patient transfered to Pre/Post Procedure Room with Stretcher. 12:22:55 Procedure ended. 12:22:55 Full Disclosure recording stopped 12:22:57 End room use (Document Last) Signature Audit [place] Stage Time Signature Unsigned Intra-Procedure 09/12/2018 Day Key 12:25:52 PM RT(R) Signatures Monitor : Day Key RT Signature : Date : Time : [place] [id number] [facility] [place] [address]
[~2018-09-12 10:04] MED LIST changes: +AMIODARONE HCL200 MG PO; +BETAPACE 120 M120 MG PO; +CARDIZEM CD180 MG PO; +LISINOPRIL40 MG PO; +RABEPRAZOLE; +TOPROL XL100 MG PO; +XARELTO15 MG PO
[2018-09-12] MEDS ORDERED: COLACE100 MG PO (10:22)
[2018-09-12] MEDS ORDERED: RABEPRAZOLE SOD PO (10:25)
[2018-09-12] MEDS ORDERED: FUROSEMIDE20 MG PO (10:26)
[2018-09-12 10:32] VITALS: BP 193/93; Ht 195.6 cm; Wt 101.8 kg
[2018-09-12 10:52] LABS: BASOPHILS 0.2 % (0-2); EOSINOPHILS 1.7 % (0-7); HEMATOCRIT 37.8 % (42.0-54.0); HEMOGLOBIN 12.6 g/dL (13.5-17.5); IMMATURE GRANULOCYTES 0.1 % (0-5); LYMPHOCYTES 19.3 % (15-50); MCH 28.6 pg (26.0-34.0); MCHC 33.3 g/dL (31.0-37.0); MCV 85.9 fL (80.0-100.0); MEAN PLATELET VOLUME 9.1 fL (7.4-10.4); MONOCYTES 8.7 % (2-11); PLATELET COUNT 305 10x3/uL (130-400); RDW 13.3 % (11.5-14.5)
[2018-09-12 11:01] LABS: CALC OSMOLALITY 286 mosm/kg (275-300); CALCIUM 8.8 mg/dL (8.5-10.1); CARBON DIOXIDE 30.3 mmol/L (21.0-32.0); CHLORIDE - SERUM 106 mmol/L (98-107); CREATININE - SERUM 0.9 mg/dL (0.6-1.3); GLUCOSE 107 mg/dL (74-106); POTASSIUM - SERUM 3.6 mmol/L (3.5-5.1); SODIUM 144 mmol/L (136-145); UREA NITROGEN 12 mg/dL (7-18); eGFR NON AFRICAN AMERICAN 89 mL/min (90-120)
[2018-09-12 11:09] LABS: INR 2.16 (0.85-1.17); PROTIME 23.4 SECONDS (11.6-15.0)
--- NOTE | 2018-09-12 12:40 | NUR ---
PT RECEIVED VIA STRETCHER FROM [facility]. PT AWAKE AND ALERT, DENIES PAIN. HR NSR RATE 55, BP 118/64, O2 SAT 94 ON ROOM AIR. CALL LIGHT IN REACH AND AT BEDSIDE.
--- NOTE | 2018-09-12 12:57 | NUR ---
PT SITTING UP IN BED W/O COMPLAINTS. TOLERATED SANDWICH AND DRINK W/O NAUSEA. HR REMAINS IN NSR, RATE 69. OTHER VSS. CALL LIGHT IN REACH AND AT BEDSIDE.
--- NOTE | 2018-09-12 13:30 | NUR ---
IV REMOVED W CATH INTACT, MONITORS REMOVED. HR REMAINS IN NSR RATE 59. PT UP TO DRESS FOR DISCHARGE.
--- NOTE | 2018-09-12 13:40 | NUR ---
PT AMBULATED TO BATHROOM W/O DIFFICULITY. DISCHARGE TEACHING COMPLETED W PT, HE VERBALIZED UNDERSTANDING.
--- NOTE | 2018-09-12 13:47 | NUR ---
PT DISCHARGED VIA WC TO PRIVATE VEHICLE.
--- NOTE | 2018-09-13 11:54 | OP ---
PATIENT NAME: RUI MUJICA MEDICAL RECORD: [id number] :[birth year] LOCATION:D.CAT ADMISSION DATE: SURGEON: RADHA ABDALLA MD DATE OF OPERATION: 09/12/2018 PROCEDURE: DC cardioversion. INDICATION: Atrial fibrillation. PROCEDURE IN DETAIL: IV conscious sedation was per anesthesia. Continuous heart rate, O2 saturation, blood pressure monitoring all undertaken, all of which remained stable. He received 1 shock restoring sinus rhythm. OVERALL IMPRESSION: Successful DC cardioversion from atrial fibrillation to sinus rhythm. TRANSINT:[id number] Voice Confirmation ID: [id number] DOCUMENT ID: [id number] RADHA ABDALLA MD at 1154 CC: [id number] DICTATION DATE: 09/12/18 1222 WEB COMMUNICATIONS SPECIALIST: 09/12/18 1242 DEP CLI 09/12/18 [address] [id number] [place] [address]
== END 2018-09-12 13:40 | disposition home or self-care (01) ==
LOC: D.CATH 10:04
PROVIDERS: ATTEND Internal Medicine Interventional Cardiology
DX: I48.91 Unspecified atrial fibrillation (principal); Z01.812 Encounter for preprocedural laboratory examination

== ENCOUNTER 2018-10-17 10:12 | Outpatient (CLI) | payer MEDICARE, OTHER ==
[~2018-10-17] VITALS: Ht 195.6 cm; Wt 105.5 kg
--- NOTE | ~2018-10-17 | HEMODYNAMI ---
PATIENT:RUI MUJICA MEDICAL RECORD: [id number] : 49 LOCATION:D.CAT ADMISSION DATE: 10/17/18 Generatedon:10/17/201812:15 Patient name: RUI MUJICA Patient #: [id number] SSN: : 1945 Date of study: 10/17/2018 Page: Of Hemodynamic Procedure Report Patient Data Patient Demographics Procedure consent was obtained First Name: RUI Gender: Male Last Name: GUANAKO : 1945 Middle Initial: R Age: 72 year(s) Patient #: [id number] Race: Unknown Additional ID: [id number] Contact details [address]: [address] [place] [address] [place] State: [place] City: [place] Zip code: [address] Past Medical History Allergies: No known allergies Admission Admission Data Admission Date: 10/17/2018 Admission Time: 10:12 Procedure Procedure Types Cath Procedure Diagnostic Procedure Cardioversion External Procedure Description Procedure Date Procedure Date: 10/17/2018 Procedure Start Time: 11:46 Procedure Staff Name Function Norman Bush MD Performing Physician Bette Ruiz RT Monitor Robb Pinto RN Nurse Ronaldo Nielsen CRNA Additional personnel Procedure Medications Medication Administration Route Dosage Oxygen etCO2 Nasal cannula 4 l/min 0.9% NaCl I.V. 100 ml/hr Refer to Anesthesia Notes for Sedation Medications Hemodynamics Rest Heart Rate: 98 (bpm) Snapshots Pre Cath Intra NCS Post Cath Vital Signs Time Heart Resp SPO2 etCO2 NIBP (mmHg) Rhythm Pain Sedation Rate (ipm) (%) (mmHg) Status Level (bpm) 11:57:15 96 16 92 0 149/110(132) NSR 0 (11) 10(A) , No pain 12:01:37 96 97 24.5 152/104(131) NSR 0 (11) 10(A) , No pain 12:05:57 77 18 97 17.8 137/116(133) NSR 0 (11) 10(A) , No pain 12:10:56 51 21 95 13.4 Measuring NSR 0 (11) 10(A) , No pain 12:11:00 49 23 94 14.8 124/78(96) NSR 0 (11) 10(A) , No pain 12:13:33 60 20 92 20.1 130/77(99) NSR 0 (11) 10(A) , No pain Medications Time Medication Route Dose Verified Delivered Reason Notes Effective ness by by 11:58:28 Oxygen etCO2 4 Norman Zamudio Per Nasal l/min Rachelle Pinto RN physician cannula 11:58:48 0.9% NaCl I.V. 100 Norman Zamudio Per ml/hr Rachelle Pinto RN physician 11:58:56 Refer to Norman Zamudio Anesthesia Rachelle Pinto RN Notes for Sedation Medications Procedure Log Time Note 11:45:20 Robb Pinto RN sent for patient. Start room use. 11:51:27 Time tracking: Regular hours (M-F 7:00 - 5:00) 11:51:31 Plan of Care:Hemodynamics will remain stable., Cardiac rhythm will remain stable., Comfort level will be maintained., Respiratory function will remain adequate., Patient/ family verbilizes understanding of procedure., Procedure tolerated without complication., Recovers from procedure without complications.. 11:51:36 Patient received from Pre/Post Procedure Room to CCL 3 Alert and oriented. Tansferred to table in Supine position. 11:51:37 Warm blankets applied, and savita hugger turned on for patient comfort. 11:51:37 Correct patient and procedure confirmed by team. 11:51:38 Signed procedure consent form obtained from patient. 11:51:39 ECG and BP/O2 sat monitors applied to patient. 11:51:41 Full Disclosure recording started 11:54:48 Rhythm: atrial fibrillation 11:55:01 H&P Date Dictated: 10/02/2018 Within 30 days and on chart., H&P Addendum completed by physician on day of procedure. (MUST COMPLETE FOR ALL OUTPATIENTS). 11:55:04 Vital chart was started 11:55:08 Pre-procedure instructions explained to patient. 11:55:08 Pre-op teaching completed and patient verbalized understanding. 11:55:17 Family in patients room. 11:55:18 Patient NPO since Midnight. 11:55:30 Patient allergic to No known allergies 11:55:31 Is the patient allergic to Iodine/contrast media? No. 11:57:15 Is patient on blood thinner?Yes 11:57:19 ACC The patient was administered the following blood thiners within the last 24 hours: Xarelto 11:57:21 Patient diabetic? No. 11:57:25 Previous problem with sedation/anesthesia? No ? 11:58:03 Snore? Yes 11:58:04 Sleep apnea? Yes 11:58:05 Deviated septum? No 11:58:06 Opens mouth fully? Yes 11:58:12 Sticks out tongue? Yes 11:58:14 Airway obstruction? No ? 11:58:16 Dentures? No ? 11:58:24 Patient pain scale 0/10 ?. 11:58:28 Oxygen 4 l/min etCO2 Nasal cannula was administered by Robb Pinto RN; Per physician; 11:58:36 IV patent on arrival in left forearm with 0.9% NaCl at KVO. 11:58:39 Lab results completed and on chart. 11:58:45 Alarms reviewed by Trupti Ray 11:58:48 0.9% NaCl 100 ml/hr I.V. was administered by Robb Pinto RN; Per physician; 11:58:54 Quick combo pads placed on patients chest and back. 11:58:56 Refer to Anesthesia Notes for Sedation Medications was administered by Robb Pinto RN; ; 11:59:07 Ronaldo Nielsen CRNA present and monitoring patient for TIVA. 12:00:26 Baseline sample Acquired. 12:05:25 Final Timeout: patient, procedure, and site verified with staff and physician. All members of the team are in agreement. 12:05:32 Fire Safety Assessment: E--There are other possible contributors. 12:05:36 Physical assessment completed. ASA score P 2 - A patient with mild systemic disease as per Norman Bush MD. 12:05:39 Sedation plan: TIVA Medication:Propofol 12:08:06 Defibrillator synced and charged to 275 Joules. 12:08:13 Shock delivered. 12:09:16 Patient cardioverted to sinus bradycardia. 12:09:18 Baseline sample Acquired. 12:09:28 Procedure ended.(Physican Out) 12:10:01 Insertion/operative site no bleeding no hematoma. 12:10:13 Post procedure rhythm: sinus bradycardia 12:11:40 Post procedure instruction explained to patient.Patient verbalizes understanding. 12:11:41 Patient needs reinforcement of post procedure teaching. 12:11:45 See physician's report for complete and final results. 12:12:19 Quick Combo opened to sterile field. 12:12:31 Procedure and supply charges have been captured, reviewed, submitted and are correct. 12:14:41 Vital chart was stopped 12:14:43 Report given to Pre/Post Procedure Room. 12:14:52 Patient transfered to Pre/Post Procedure Room with Stretcher. 12:15:02 End room use (Document Last) Device Usage Item Manufacture Quantity Catalog Hospital Part Current Minimal Lot# / Name Number Charge Number Stock Stock Glen ms# Code [employer] 1 [id number] Combo Signature Audit Glendo Stage Time Signature Unsigned Intra-Procedure 10/17/2018 Bette 12:15:52 PM Counts RT(R) Signatures Monitor : Bette Signature : Counts RT Date : Time : [address] [address]
[~2018-10-17 10:12] MED LIST changes: +COLACE100 MG PO; +FUROSEMIDE20 MG PO; +RABEPRAZOLE SOD PO
[2018-10-17 10:42] VITALS: BP 143/107; Ht 195.6 cm; Wt 105.5 kg
[2018-10-17 10:52] LABS: BASOPHILS 0.3 % (0-2); EOSINOPHILS 3.7 % (0-7); HEMATOCRIT 38.2 % (42.0-54.0); HEMOGLOBIN 12.6 g/dL (13.5-17.5); MCH 27.9 pg (26.0-34.0); MCV 84.7 fL (80.0-100.0); MEAN PLATELET VOLUME 9.4 fL (7.4-10.4); MONOCYTES 13.2 % (2-11); NEUTROPHILS 64.8 % (40-80); RBC 4.51 10x6/uL (4.20-6.10); RDW 14.5 % (11.5-14.5); WBC 6.7 10x3/uL (4.8-10.8)
[2018-10-17 10:53] LABS: PLATELET COUNT 173 10x3/uL (130-400)
[2018-10-17 11:09] LABS: CALC OSMOLALITY 285 mosm/kg (275-300); CALCIUM 8.4 mg/dL (8.5-10.1); CARBON DIOXIDE 28.7 mmol/L (21.0-32.0); CHLORIDE - SERUM 107 mmol/L (98-107); CREATININE - SERUM 0.9 mg/dL (0.6-1.3); GLUCOSE 107 mg/dL (74-106); POTASSIUM - SERUM 3.2 mmol/L (3.5-5.1); SODIUM 143 mmol/L (136-145); UREA NITROGEN 15 mg/dL (7-18); eGFR NON AFRICAN AMERICAN 89 mL/min (90-120)
[2018-10-17 11:19] LABS: INR 2.73 (0.85-1.17); PROTIME 28.2 SECONDS (11.6-15.0)
--- NOTE | 2018-10-17 12:41 | NUR ---
PT'S HEAD OF BED INC TO 30 DEGREES. SET UP WITH SANDWICH TRAY AND COFFEE PER REQUEST. NO OTHER NEEDS AT THIS TIME.
--- NOTE | 2018-10-17 12:56 | NUR ---
DR. ABDALLA ROUNDED AND SPOKE WITH PT AND PT'S FAMILY.
--- NOTE | 2018-10-17 13:09 | NUR ---
LEFT FA PIV D/C'D WITH CATH TIP INTACT. PT TOLERATED WELL. PT INSTRUCTED TO GET UP AND DRESSED. FAMILY AT BEDSIDE FOR ASSISTANCE.
--- NOTE | 2018-10-17 13:15 | NUR ---
DISCUSSED DISCHARGE INSTRUCTIONS WITH PT AND PT'S FAMILY. THEY VOICED UNDERSTANDING. PT AMBULATED TO RESTROOM. VOIDED WITHOUT DIFFICULTY.
--- NOTE | 2018-10-17 13:20 | NUR ---
PT TAKEN OUT TO VEHICLE BY WHEELCHAIR. NO S/S OF DISTRESS NOTED. ALL BELONGINGS AND PAPERWORK IN HAND.
--- NOTE | 2018-10-19 15:12 | OP ---
PATIENT NAME: RUI MUJICA MEDICAL RECORD: [id number] :49 LOCATION:D.CAT ADMISSION DATE: SURGEON: RADHA ABDALLA MD DATE OF OPERATION: 10/17/2018 PROCEDURE: DC cardioversion. INDICATION: Atrial fibrillation. Continuous heart rate, O2 saturation, blood pressure monitoring all undertaken, all of which remained stable. He received IV conscious sedation per anesthesia. DC cardioversion was performed, 1 shock at 275 joules restored sinus rhythm. OVERALL IMPRESSION: Successful DC cardioversion from atrial fibrillation to sinus rhythm. TRANSINT:[id number] Voice Confirmation ID: [id number] DOCUMENT ID: [id number] RADHA ABDALLA MD at 1512 CC: [id number] DICTATION DATE: 10/17/18 1211 BINDER AND WRAPPER PACKER: 10/17/18 1240 DEP CLI 10/17/18 [id number] [place] [address]
== END 2018-10-17 13:20 | disposition home or self-care (01) ==
LOC: D.CATH 10:12
PROVIDERS: ATTEND Internal Medicine Interventional Cardiology
DX: I48.91 Unspecified atrial fibrillation (principal); Z01.812 Encounter for preprocedural laboratory examination

== ENCOUNTER → 2018-10-25 14:43 | Outpatient (CLI) | payer MEDICARE, OTHER ==
[2018-10-17 10:42] VITALS: BMI 27.5
== END | disposition home or self-care (01) ==
LOC: D.CT 14:43
PROVIDERS: ATTEND Internal Medicine Interventional Cardiology
DX: I71.00 Dissection of unspecified site of aorta (principal)

== ENCOUNTER → 2018-10-29 07:15 | Outpatient (CLI) | payer MEDICARE, OTHER ==
[2018-10-17 10:42] VITALS: BMI 27.5
== END | disposition home or self-care (01) ==
LOC: D.CT 07:15
PROVIDERS: ATTEND Thoracic Surgery (Cardiothoracic Vascular Surgery)
DX: I77.72 Dissection of iliac artery (principal)

== ENCOUNTER → 2018-11-26 18:55 | Outpatient (CLI) | payer MEDICARE, OTHER ==
[2018-10-17 10:42] VITALS: BMI 27.5
== END | disposition home or self-care (01) ==
LOC: D.LABREF 18:55
PROVIDERS: ATTEND Urology
DX: R31.9 Hematuria, unspecified (principal)

== ENCOUNTER 2018-12-25 08:25 | Day surgery (SDC) | payer MEDICARE, OTHER ==
[2018-12-24 09:58] LABS: HEMATOCRIT 37.9 % (42.0-54.0); HEMOGLOBIN 12.6 g/dL (13.5-17.5); MCH 27.1 pg (26.0-34.0); MCHC 33.2 g/dL (31.0-37.0); MCV 81.5 fL (80.0-100.0); MEAN PLATELET VOLUME 8.5 fL (7.4-10.4); RBC 4.65 10x6/uL (4.20-6.10); RDW 14.4 % (11.5-14.5); WBC 6.2 10x3/uL (4.8-10.8)
[2018-12-24 10:06] LABS: CALC OSMOLALITY 281 mosm/kg (275-300); CARBON DIOXIDE 30.6 mmol/L (21.0-32.0); CHLORIDE - SERUM 104 mmol/L (98-107); CREATININE - SERUM 0.8 mg/dL (0.6-1.3); GLUCOSE 114 mg/dL (74-106); POTASSIUM - SERUM 4.1 mmol/L (3.5-5.1); SODIUM 141 mmol/L (136-145); UREA NITROGEN 12 mg/dL (7-18); eGFR NON AFRICAN AMERICAN > 90 mL/min (90-120)
[~2018-12-25] VITALS: Ht 195.6 cm; Wt 106.1 kg
[2018-12-25 11:30] VITALS: BP 135/96; Ht 195.6 cm; Wt 106.1 kg
--- NOTE | 2018-12-25 16:30 | OP ---
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 PSA was 1.02 on 11/14/2018. IPSS was 20 and quality of life score was 4 on tamsulosin. PROCEDURE: UroLift times 4 in a box configuration. FINDINGS: Nonobstructive lateral prostatic lobes. Bladder neck stenosis. No bladder tumors seen. EKG shows that the patient is again in atrial fibrillation. BLOOD LOSS: None. CLINICAL HISTORY: This is a 73-year-old male with history of chronic atrial fibrillation. He was previously on Xarelto. He had cardiac ablation in October of this year and he was back in sinus rhythm and the Xarelto was stopped. He was given cardiac clearance by Dr. Bush. He has obstructive voiding symptoms including urinary tract infections which are recurrent. He had previously been on Flomax and Cialis to treat this. These medications had been stopped when he was in atrial fibrillation. He has restarted on Flomax, but he still has quite symptomatic voiding problems. He comes now to have the UroLift procedure done. He had another UTI which we recently treated. His urine is clear at the present time. He is not allergic to any medication. He was given Ancef on-call to the OR. DESCRIPTION OF PROCEDURE: The patient was given IV sedation. He was placed in lithotomy position and prepped and draped. Cystoscopy with UroLift scope showed no urethral obstruction. The prostate showed no obstruction by the lateral lobes, but the bladder neck was quite tight. Going into the bladder, the bladder was moderately trabeculated with no bladder tumors seen. We then decided to proceed with placement of the UroLift in a box configuration. Two anterolateral sulcus units were placed, one on each side, about 1.5 cm distal to the bladder neck. Then, 2 further units were placed at the mid prostatic urethral level 1.5 cm distal to the bladder neck. This opened up the bladder neck quite nicely. The bladder was left partly full and then the scope was removed. He will have a voiding trial. I will see him in followup in one month's time. I will also advise him to go back to see his sales operations consultant to treat the atrial fibrillation. TRANSINT:[id number] Voice Confirmation ID: [id number] DOCUMENT ID: [id number] OPERATIVE REPORT [id number] RUI MUJICA, LJ Aviles MD at 1630 CC: [id number] DICTATION DATE: 12/25/18 1430 REPEAT PHOTOCOMPOSING MACHINE OPERATOR: 12/25/18 1533 [address] [place] [address] [id number] [place] [id number]
== END 2018-12-25 16:40 | disposition home or self-care (01) ==
LOC: D.OPS 08:25 → D.PAN 11:45 → D.OPS 13:30
PROVIDERS: Anesthesiology; ATTEND Urology
DX: N40.1 Benign prostatic hyperplasia with lower urinary tract symptoms (principal); N13.8 Other obstructive and reflux uropathy; I48.2 Chronic atrial fibrillation; Z01.812 Encounter for preprocedural laboratory examination

== ENCOUNTER → 2019-02-18 07:14 | Outpatient (CLI) | payer MEDICARE, OTHER ==
[2018-12-25 11:30] VITALS: BMI 27.8
== END | disposition home or self-care (01) ==
LOC: D.CT 07:14
PROVIDERS: ATTEND Thoracic Surgery (Cardiothoracic Vascular Surgery)
DX: I71.2 Thoracic aortic aneurysm, without rupture (principal)

== ENCOUNTER 2020-01-16 06:20 | Observation (INO) | payer MEDICARE, OTHER ==
[~2020-01-16] VITALS: Ht 182.9 cm; Wt 110.7 kg
[2020-01-16] VITALS (7 sets, daily range): BP systolic 126–161; BP diastolic 79–105; Ht 182.9 cm; Wt 110.7 kg
[2020-01-16] MEDS ORDERED: BYSTOLIC2.5 MG PO (06:42)
[2020-01-16] MEDS ORDERED: XARELTO20 MG PO (06:43)
[2020-01-16 06:59] LABS: CALC OSMOLALITY 278 mosm/kg (275-300); CALCIUM 8.5 mg/dL (8.5-10.1); CARBON DIOXIDE 23.9 mmol/L (21.0-32.0); CHLORIDE - SERUM 105 mmol/L (98-107); GLUCOSE 124 mg/dL (74-106); POTASSIUM - SERUM 3.8 mmol/L (3.5-5.1); SODIUM 138 mmol/L (136-145); UREA NITROGEN 19 mg/dL (7-18); eGFR NON AFRICAN AMERICAN 78 mL/min (90-120)
[2020-01-16 07:06] LABS: APTT 38.1 SECONDS (22.8-39.4); INR 1.64 (0.85-1.17); PROTIME 19.3 SECONDS (11.6-15.0)
[2020-01-16 07:07] LABS: BASOPHILS 0.1 % (0-2); D-DIMER-QUANTITATIVE 0.71 ug/mLFEU (0.20-0.54); EOSINOPHILS 2.4 % (0-7); HEMATOCRIT 40.4 % (42.0-54.0); HEMOGLOBIN 13.6 g/dL (13.5-17.5); IMMATURE GRANULOCYTES 0.1 % (0-5); LYMPHOCYTES 12.7 % (15-50); MCH 28.5 pg (26.0-34.0); MCHC 33.7 g/dL (31.0-37.0); MCV 84.7 fL (80.0-100.0); MEAN PLATELET VOLUME 9.3 fL (7.4-10.4); MONOCYTES 7.2 % (2-11); NEUTROPHILS 77.5 % (40-80); RBC 4.77 10x6/uL (4.20-6.10); RDW 13.7 % (11.5-14.5); WBC 8.1 10x3/uL (4.8-10.8)
[2020-01-16 07:16] LABS: ALBUMIN 3.7 g/dL (3.4-5.0); ALKALINE PHOSPHATASE 91 U/L (30-120); ALT (SGPT) 23 U/L (10-68); BILIRUBIN - TOTAL 1.25 mg/dL (0.2-1.3); C-REACTIVE PROTEIN 0.5 mg/dL (0.0-0.9); CREATINE KINASE 118 UL (21-232); MAGNESIUM - SERUM 2.2 mg/dL (1.8-2.4); PLATELET COUNT 168 10x3/uL (130-400); PRO BNP 2623 pg/mL (0-125); PROTEIN - SERUM 6.8 g/dL (6.4-8.2); THYROID STIMULATING HORMONE 4.15 uIU/mL (0.36-3.74)
[2020-01-16 07:17] LABS: TROPONIN-I < 0.017 ng/mL (0.000-0.060)
[2020-01-16 13:26] LABS: CKMB 2.2 U/L (0.0-3.6); CREATINE KINASE 103 UL (21-232)
--- NOTE | 2020-01-16 17:20 | NUR ---
AZITHROMYCIN COMPLETE AT 1720
--- NOTE | 2020-01-16 19:32 | NUR ---
RECEIVED BEDSIDE REPORT. PATIENT IS ALERT AND ORIENTED, SITTING UP ON SIDE OF BED. RESPIRATIONS ARE EVEN AND UNLABORED. NO S/S OF DISTRESS. NO C/O PAIN. CALL LIGHT WITHIN REACH. WILL CPOC.
[2020-01-16 20:19] LABS: CKMB 2.5 U/L (0.0-3.6); CREATINE KINASE 101 UL (21-232); TROPONIN-I < 0.017 ng/mL (0.000-0.060)
[2020-01-17 00:32] VITALS: BP 152/107
[2020-01-17 04:51] VITALS: BP 156/106
[2020-01-17 05:54] LABS: BASOPHILS 0.2 % (0-2); EOSINOPHILS 5.3 % (0-7); HEMATOCRIT 38.6 % (42.0-54.0); HEMOGLOBIN 12.8 g/dL (13.5-17.5); IMMATURE GRANULOCYTES 0.2 % (0-5); LYMPHOCYTES 20.4 % (15-50); MCHC 33.2 g/dL (31.0-37.0); MCV 84.5 fL (80.0-100.0); MEAN PLATELET VOLUME 9.4 fL (7.4-10.4); MONOCYTES 11.5 % (2-11); NEUTROPHILS 62.4 % (40-80); PLATELET COUNT 150 10x3/uL (130-400); RBC 4.57 10x6/uL (4.20-6.10); RDW 13.6 % (11.5-14.5)
[2020-01-17 05:56] LABS: WBC 5.2 10x3/uL (4.8-10.8)
[2020-01-17 06:28] LABS: ALBUMIN 3.4 g/dL (3.4-5.0); ALKALINE PHOSPHATASE 80 U/L (30-120); ALT (SGPT) 25 U/L (10-68); BILIRUBIN - TOTAL 1.97 mg/dL (0.2-1.3); CALC OSMOLALITY 279 mosm/kg (275-300); CARBON DIOXIDE 28.6 mmol/L (21.0-32.0); CHLORIDE - SERUM 106 mmol/L (98-107); CKMB 1.9 U/L (0.0-3.6); CREATINE KINASE 82 UL (21-232); GLUCOSE 100 mg/dL (74-106); POTASSIUM - SERUM 3.5 mmol/L (3.5-5.1); PROTEIN - SERUM 6.4 g/dL (6.4-8.2); SODIUM 140 mmol/L (136-145); UREA NITROGEN 15 mg/dL (7-18); eGFR NON AFRICAN AMERICAN 78 mL/min (90-120)
[2020-01-17 06:31] LABS: TROPONIN-I < 0.017 ng/mL (0.000-0.060)
[2020-01-17 09:00] VITALS: BP 157/109
[2020-01-17 11:00] VITALS: BP 154/103
[2020-01-17] MEDS ORDERED: TESSALON PERLE100 MG PO (14:16)
[2020-01-17] MEDS ORDERED: MUCINEX600 MG PO (14:17)
[2020-01-17] MEDS ORDERED: AZITHROMYCIN500 MG PO (14:17)
[2020-01-17] MEDS ORDERED: ALBUTEROL SULF8.5 GM INH (14:18)
[2020-01-17] MEDS ORDERED: BYSTOLIC5 MG PO (14:22)
--- NOTE | 2020-01-17 15:18 | NUR ---
REVIEWED DISCHARGE INSTRUCTIONS WITH PATIENT. PATIENT IV REMOVED CATHETER INTACT. TESTING LEAD RETURNED TO AIRCRAFT ENGINE MECHANIC.
== END 2020-01-17 15:54 | disposition home or self-care (01) ==
LOC: D.ER 06:20 → D.M2 07:42 → D.EDHOLD 07:42 → OBSVTIME 07:43 → D.EDHOLD 08:00 → D.MS 08:00 → D.EDHOLD 08:49 → D.M2 17:40
PROVIDERS: Family Medicine; ADMIT Family Medicine Adult Medicine; ATTEND Family Medicine Adult Medicine
DX: I48.91 Unspecified atrial fibrillation (principal); J18.9 Pneumonia, unspecified organism; J81.1 Chronic pulmonary edema; N20.0 Calculus of kidney; G47.33 Obstructive sleep apnea (adult) (pediatric); D64.9 Anemia, unspecified; K21.9 Gastro-esophageal reflux disease without esophagitis; K57.90 Diverticulosis of intestine, part unspecified, without perforation or abscess without bleeding; M19.90 Unspecified osteoarthritis, unspecified site; N40.0 Benign prostatic hyperplasia without lower urinary tract symptoms; Z79.01 Long term (current) use of anticoagulants; J43.9 Emphysema, unspecified

== ENCOUNTER → 2020-02-13 07:56 | Outpatient (CLI) | payer MEDICARE, OTHER ==
[~2020-02-13 07:56] MED LIST changes: +ALBUTEROL SULF8.5 GM INH; +AZITHROMYCIN500 MG PO; +BYSTOLIC2.5 MG PO; +BYSTOLIC5 MG PO; +MUCINEX600 MG PO; +TESSALON PERLE100 MG PO; +XARELTO20 MG PO
== END | disposition home or self-care (01) ==
LOC: D.RAD 02-06 08:30
PROVIDERS: ATTEND Surgery
DX: K21.9 Gastro-esophageal reflux disease without esophagitis (principal); R13.10 Dysphagia, unspecified

== ENCOUNTER 2020-10-22 12:25 | Day surgery (SDC) | payer MEDICARE, OTHER ==
[~2020-10-22] VITALS: Ht 198.1 cm; Wt 114.9 kg
--- NOTE | ~2020-10-22 | HEMODYNAMI ---
PATIENT:RUI MUJICA MEDICAL RECORD: [id number] : 49 LOCATION:D.CAT ADMISSION DATE: 10/22/20 Generatedon:113:53 Patient name: RUI MUJICA Patient #: [id number] SSN: : 1945 Date of study: 10/22/2020 Page: Of Hemodynamic Procedure Report Patient Data Patient Demographics Procedure consent was obtained First Name: RUI Gender: Male Last Name: GUANAKO : 1945 Middle Initial: R Age: 74 year(s) Patient #: [id number] Race: Unknown Additional ID: [id number] Contact details Address: [address] [place] State: [place] City: [place] Zip code: [address] Past Medical History Allergies: No known allergies Admission Admission Data Admission Date: 10/22/2020 Admission Time: 12:25 Arrival Date: 10/22/2020 Arrival Time: 0:00 Height (in.): 74.41 BSA: 2.41 (m2) Height (cm.): 189 BMI: 32.19 (kg/m2) Weight (lbs.): 253.53 Weight (kg.): 115 Procedure Procedure Types Cath Procedure Diagnostic Procedure PPM/ICD PPM Dual Implant Sedation Charges Moderate Sedation 25-39 minutes Procedure Description Procedure Date Procedure Date: 10/22/2020 Procedure Start Time: 13:23 Procedure End Time: 13:50 Procedure Staff Name Function Larry Bo MD Performing Physician Krystian Swanson MD Assisting physician Sabrina Campo RT Monitor Patricia Aguilar RT Scrub Emery Thorpe RN Nurse Procedure Data Cath Procedure Fluoroscopy Diagnostic fluoroscopy Total fluoroscopy Time: 2.3 time: 2.3 min min Diagnostic fluoroscopy Total fluoroscopy dose: dose: 134.94 mGy 134.94 mGy Estimated blood loss: 5 ml Procedure Complications No complications Procedure Medications Medication Administration Route Dosage 0.9% NaCl I.V. 100 ml/hr Oxygen etCO2 Nasal cannula 2 l/min Ancef (1Gm/50ml NS) I.V.P.B 1 g Versed I.V. 2 mg Fentanyl I.V. 100 mcg Lidocaine 1% added to field 20 Ancef Irrigation 1 g (1gm/500ml NS) Versed I.V. 1 mg Versed I.V. 1 mg Hemodynamics Rest BSA: 2.41 (m2) O2 Consumption: Estimated: 286.51 (ml/min) O2 Consumption indexed : Estimated:118.88 (ml/min/m) Heart Rate: 80 (bpm) Snapshots Pre Cath Intra NCS Post Cath Vital Signs Time Heart Resp SPO2 NIBP (mmHg) Rhythm Pain Sedation Rate (ipm) (%) Status Level (bpm) 13:11:42 74 21 91 162/97(129) A-Fib 0 (11) 10(A) , No pain 13:16:02 65 18 91 158/112(130) A-Fib 0 (11) 10(A) , No pain 13:20:20 76 25 88 154/92(125) A-Fib 0 (11) 10(A) , No pain 13:25:17 75 23 96 155/93(126) A-Fib 0 (11) 10(A) , No pain 13:29:33 64 14 96 150/100(132) A-Fib 0 (11) 10(A) , No pain 13:33:49 92 19 96 147/90(109) A-Fib 0 (11) 10(A) , No pain 13:38:38 73 18 95 151/102(121) A-Fib 0 (11) 10(A) , No pain 13:42:56 71 20 97 150/90(113) A-Fib 0 (11) 10(A) , No pain 13:47:14 71 25 96 140/85(116) A-Fib 0 (11) 10(A) , No pain 13:51:26 81 23 95 149/94(118) A-Fib 0 (11) 10(A) , No pain Medications Time Medication Route Dose Verified Delivered Reason Notes Effectiv eness by by 13:23:41 0.9% NaCl I.V. 100 Emery Emery Per ml/hr Ila Thorpe physician RN RN 13:23:50 Oxygen etCO2 2 Emery Emery for low 02 Nasal l/min Ila Thorpe sats cannula RN RN 13:24:00 Ancef I.V.P.B 1 g Emery Emery Per (1Gm/50ml Lorigan Lorigan physician NS) RN RN 13:24:11 Versed I.V. 2 mg Emery Emery for Lorigan Lorigan sedation RN RN 13:24:21 Fentanyl I.V. 100 Emery Emery for mcg Lorigan Lorigan sedation RN RN 13:24:37 Lidocaine added 20ml Emery Emery for local 1% to vial Lorigan Lorigan anesthetic field x2 RN RN 13:25:11 Ancef Topical 1 g Emery Emery used for Irrigation ( added Lorigan Lorigan procedure (1gm/500ml to the RN RN NS) field ) 13:28:27 Versed I.V. 1 mg Emery Emery for Lorigan Lorigan sedation RN RN 13:33:06 Versed I.V. 1 mg Emery Emery for Lorigan Lorigan sedation RN cat swamper Log Time Note 12:30:18 Informed consent obtained and on chart 12:30:40 Procedure Status PPM/ Gen Change/ Lead Revision/ Temp. 12:30:42 Time tracking: Regular hours (M-F 7:00 - 5:00) 12:30:46 Plan of Care:Hemodynamics will remain stable., Cardiac rhythm will remain stable., Comfort level will be maintained., Respiratory function will remain adequate., Patient/ family verbilizes understanding of procedure., Procedure tolerated without complication., Recovers from procedure without complications.. 12:44:36 Medtronic member services representative SHARONDA GRAVES present for procedure. 12:44:41 Use device set ROLO PPM 12:44:43 2-0 Ticron Multipack ([id number]) opened to sterile field. 12:44:43 3-0 Vicryl Single Pack [id number] opened to sterile field. 12:44:44 5-0 Monocryl PS2 [id number] opened to sterile field. 12:44:44 Cautery Tip Director Personal opened to sterile field. 12:44:44 Cautery Pushbutton Pencil opened to sterile field. 12:44:45 Mepilex Dressing ([id number]) opened to sterile field. 12:44:[address] Generator [id number] opened to sterile field. 12:55:26 H&P Date Dictated: 10/22/2020 Within 30 days and on chart., H&P Addendum completed by physician on day of procedure. (MUST COMPLETE FOR ALL OUTPATIENTS). 12:57:53 Patricia BOSS(R) sent for patient. Start room use. 12:59:38 Patient Weight : 253.53 lbs 12:59:40 Patient Height : 74.41 inches 12:59:44 Arrival Date: 10/22/2020 12:00:00 AM 13:00:01 Patient allergic to No known allergies 13:02:32 Patient received from Pre/Post Procedure Room to CCL 3 Alert and oriented. Tansferred to table in Supine position. 13:02:33 Warm blankets applied, and savita hugger turned on for patient comfort. 13:02:33 Correct patient and procedure confirmed by team. 13:02:34 ECG and BP/O2 sat monitors applied to patient. 13:10:30 Vital chart was started 13:10:31 Baseline sample Acquired. 13:10:36 Rhythm: atrial fibrillation 13:10:38 Full Disclosure recording started 13:10:39 Pre-procedure instructions explained to patient. 13:10:39 Pre-op teaching completed and patient verbalized understanding. 13:10:40 Family in patients room. 13:10:42 Patient NPO since Midnight. 13:10:44 Is patient on blood thinner?Yes 13:10:54 XARELTO 2 DAYS AGO 13:11:01 Patient diabetic? No. 13:11:03 Previous problem with sedation/anesthesia? No ? 13:11:04 Snore? Yes 13:11:05 Sleep apnea? No 13:11:06 Deviated septum? No 13:11:07 Opens mouth fully? Yes 13:11:07 Sticks out tongue? Yes 13:11:09 Airway obstruction? No ? 13:11:10 Dentures? No ? 13:11:43 IV patent on arrival in left hand with 0.9% NaCl at O. 13:11:48 Lab results completed and on chart. 13:11:52 Left chest area was prepped with chlora-prep and draped in sterile fashion 13:11:53 Alarms reviewed by R. N. 13:11:53 Sharps counted by scrub and verified by R.N. 13:12:19 Medtronic 4074-58 PPM Lead opened to sterile field. 13:12:19 Medtronic 4574-53 PPM Lead opened to sterile field. 13:12:23 Immobilizer Extra Large opened to sterile field. ::38 --------ALL STOP TIME OUT------ ::38 Final Timeout: patient, procedure, and site verified with staff and physician. All members of the team are in agreement. 13:20:42 Left chest site verified by team. 13:20:45 Fire Safety Assessment: A--An alcohol-based skin anteseptic being used preoperatively., B--The operative or invasive procedure is being performed above the xiphoid process or in the oropharynx., C--Open oxygen or nitrous oxide is being used. 13:20:49 Physical assessment completed. ASA score P 2 - A patient with mild systemic disease as per Larry Bo MD. 13:20:53 Sedation plan: IV Moderate Sedation Medication:Versed, Fentanyl 13:23:28 Procedure started. 13:23:41 0.9% NaCl 100 ml/hr I.V. was administered by Emery Thorpe RN; Per physician; Verbal order read back and verified. 13:23:45 Pre sharps counted by scrub and verified by RN: Sutures: 7; Sponges: 5; Stick needles: 2; Skin needles: 2; Blade: 1; Cautery: 1 13:23:47 Grounding pad site Left thigh. 13:23:48 Grounding pad site free from injury. 13:23:50 Oxygen 2 l/min etCO2 Nasal cannula was administered by Emery Thorpe RN; for low 02 sats; Verbal order read back and verified. 13:23:52 Lidocaine 1% was administered to left subclavicular area by Krystian Swanson MD . 13:24:00 Ancef (1Gm/50ml NS) 1 g I.V.P.B was administered by Emery Thorpe RN; Per physician; Verbal order read back and verified. 13:24:11 Versed 2 mg I.V. was administered by Emery Thorpe RN; for sedation; Verbal order read back and verified. 13:24:21 Fentanyl 100 mcg I.V. was administered by Emery Thorpe RN; for sedation; Verbal order read back and verified. 13:24:37 Lidocaine 1% 20ml vial x2 added to field was administered by Emery Lorigan RN; for local anesthetic; Verbal order read back and verified. 13:25:11 Ancef Irrigation (1gm/500ml NS) 1 g Topical ( added to the field ) was administered by Emery Thorpe RN; used for procedure; Verbal order read back and verified. 13:26:01 Incision made to left subclavicular area. 13:28:27 Versed 1 mg I.V. was administered by Emery Thorpe RN; for sedation; Verbal order read back and verified. 13:28:57 Left subclavian vein accessed with 7Fr Peel Away Sheath. 13:29:00 Left subclavian vein accessed with 7Fr Peel Away Sheath. 13:30:10 Ventricular lead inserted and advanced. 13:30:12 Atrial lead inserted and advanced. 13:32:48 Ventricular lead positioned. 13:33:06 Versed 1 mg I.V. was administered by Emery Thorpe RN; for sedation; Verbal order read back and verified. 13:34:24 Ventricular lead tested. 13:35:51 Ventricular lead tested. 13:36:30 Atrial lead positioned. 13:36:49 Atrial lead tested. 13:38:49 Peel-a-way sheath was split and removed. 13:38:50 Peel-a-way sheath was split and removed. 13:38:55 PPM Dual was attached to lead(s) and inserted into pocket. 13:38:59 PPM Dual was inserted subcutaneously to left chest. 13:39:02 Device pocket was irrigated with Ancef. 13:39:08 Atrial lead attachment was completed with 2-0 ticron. 13:39:12 Ventricular lead attachment was completed with 2-0 ticron. 13:39:15 Generator was sutured in place with 2-0 ticron. 13:43:12 Subcutaneous closure was completed with 3-0 vicryl. 13:44:43 Skin closure was completed with 5-0 monocryl. 13:45:01 Parameters-- Generator: Mode: AAIR/DDDR . Lower Rate: 60bpm. Upper Rate: 120bpm. 13:45:53 Parameters--Ventricular P/R Wave: 4.5mV. Current: .3mA; Threshold: .2V; Impedence: 1251OHMS. 13:46:11 Parameters--Atrial P/R Wave: ?mV. Current: ?mA; Threshold: ?V; Impedence: 588OHMS. 13:48:59 Lt Chest incision was dressed with Mepilex dressing. 13:49:02 Procedure ended.(Physican Out) 13:49:27 Fluoroscopy time 02.30 minutes. 13:49:33 Fluoroscopy dose: 134.94 mGy 13:49:33 Flurop Dose total: 134.94 13:49:39 Dose Area Product 1573 mGy/cm. 13:49:43 Sharps counted by scrub and verified by R.N. 13:49:52 Post-procedure physical assessment completed. ASA score P 2 - A patient with mild systemic disease as per Larry Bo MD. 13:49:58 Post procedure rhythm: paced 13:50:00 Estimated blood loss: 5 ml 13:50:01 Post procedure instruction explained to patient.Patient verbalizes understanding. 13:50:02 Patient needs reinforcement of post procedure teaching. 13:50:30 Procedure type changed to Cath procedure, Diagnostic procedure, PPM/ICD, PPM Dual Implant, Sedation Charges, Moderate Sedation 25-39 minutes 13:50:45 Procedure and supply charges have been captured, reviewed, submitted and are correct. 13:50:48 Procedure Complication : No complications 13:50:50 Vital chart was stopped 13:50:52 Operative report dictated upon procedure completion. 13:50:53 See physician's report for complete and final results. 13:50:54 Report given to Pre/Post Procedure Room. 13:50:57 Patient transfered to Pre/Post Procedure Room with Bed. 13:50:59 Procedure ended. 13:50:59 Full Disclosure recording stopped 13:51:03 End room use (Document Last) 13:51:14 End room use (Document Last) 13:53:24 End room use (Document Last) Device Usage Item Name Manufacture Quantity Catalog Hospital Part Current Minima l Lot# / Serial# Number Charge Number Stock Stock Code 2-0 Ticron Ethicon 4 [id number] [id number] 5 Multipack ([id number]) 3-0 Vicryl Ethicon 1 [id number] 915123 679656 5 Single Pack [id number] 5-0 Monocryl Ethicon 1 [id number] 735622 456590 079725 5 PS2 Y495G Cautery Tip Microtek 1 [id number] 553143 271410 [id number] 5 Director Personal [employer] Cautery Microtek 1 [id number] [id number] [id number] 5 Pushbutton [employer] Pencil Mepilex Cardinal 1 [id number] 888983 205943 914354 5 Dressing Health ([id number]) Medtronic Medtronic 1 [id number] 926481 [id number] 731362 [id number] EXP:02/03/2022 Generator [id number] Medtronic Medtronic 1 4074-58 170516 654522 617231 5 4074-58 PPM Lead Medtronic Medtronic 1 4574-53 797173 069696 788938 5 4574-53 PPM Lead Immobilizer Cardinal 1 [id number] 289033 084608 130489 5 Extra Large Health Signature Audit [place] Stage Time Signature Unsigned Intra-Procedure 10/22/2020 Sabrina Campo 1:51:14 PM RT(R) Intra-Procedure 10/22/2020 Emery 1:53:24 PM Ila HESTER Intra-Procedure 10/22/2020 Larry Grewal 1:53:44 PM Bon [facility] [address] [place] [address]
[2020-10-22] MEDS ORDERED: CARDIZEM120 MG PO (12:40)
[2020-10-22] MEDS ORDERED: BAYER CHEWABLE81 MG PO (12:42)
[2020-10-22] MEDS ORDERED: ZESTRIL20 MG PO (12:43)
[2020-10-22] MEDS ORDERED: BETAPACE 120 M120 MG PO (12:43)
[2020-10-22] MEDS ORDERED: NIASPAN500 MG PO (12:45)
[2020-10-22] MEDS ORDERED: KLONOPIN0.5 MG PO (12:47)
[2020-10-22] MEDS ORDERED: COLACE100 MG PO (12:47)
[2020-10-22] MEDS ORDERED: VITAMIN D-32000 UNIT PO (12:48)
[2020-10-22] MEDS ORDERED: ZINC50 MG PO (12:48)
[2020-10-22 12:55] VITALS: BP 144/91; Ht 198.1 cm; Wt 114.9 kg
[2020-10-22 13:01] LABS: HEMATOCRIT 38.8 % (42.0-54.0); HEMOGLOBIN 12.4 g/dL (13.5-17.5); MCH 26.4 pg (26.0-34.0); MCV 82.6 fL (80.0-100.0); MEAN PLATELET VOLUME 8.9 fL (7.4-10.4); RBC 4.7 10x6/uL (4.20-6.10); RDW 15.1 % (11.5-14.5)
[2020-10-22 13:14] LABS: CALC OSMOLALITY 284 mosm/kg (275-300); CALCIUM 8.9 mg/dL (8.5-10.1); CHLORIDE - SERUM 106 mmol/L (98-107); GLUCOSE 93 mg/dL (74-106); POTASSIUM - SERUM 3.6 mmol/L (3.5-5.1); SODIUM 143 mmol/L (136-145); UREA NITROGEN 13 mg/dL (7-18); eGFR NON AFRICAN AMERICAN 78 mL/min (90-120)
[2020-10-22 13:19] LABS: APTT 33.4 SECONDS (22.8-39.4)
[2020-10-22 13:20] LABS: INR 1.33 (0.85-1.17); PROTIME 15.2 SECONDS (11.6-15.0)
--- NOTE | 2020-10-22 14:08 | NUR ---
ARRIVES TO ROOM 3 VIA STRETCHER S/P PPM. SEE SUPERVISOR RIPRAP PLACING. PLACED ON MONITORS ALARMS ON. DR VEGA AT BEDSIDE TO SPEAK WITH PT SPOUSE, SPOUSE AND PT EDUCATED ON NEED TO KEEP LEFT ARM IMOBILZED AND SLING IN PLACE, PT VERBALIZED UNDERSTANDING, IV INFUSING PER ORDERS, DENIES PAIN OR NEEDS, PT REQUEST SANDWICH AND PO FLUIDS ON ARRIVAL TO ROOM.
--- NOTE | 2020-10-22 14:15 | NUR ---
RESTING QUIETLY VISITING WITH SPOUSE AT BEDSIDE, VSS, AFIB PER MONITOR ALARMS AND PACER MODE ON. LEFT CHEST WITH MEPILEX C/D/I AND LEFT ARM SLING INPLACE CAP REFILL WNL. IV INFUSING PER ORDERS, DENIES PAIN OR NEEDS, CALL LIGHT WITHIN REACH.
--- NOTE | 2020-10-22 14:45 | NUR ---
DISCHARGE TEACHING STARTED, VSS, AFIB ON MONITOR, LEFT CHEST WTIH DRESSING IN PLACE C/D/I AND LEFT ARM SLING INPLACE, DENIES PAIN OR NEEDS AT PRESENT. CALL LIGHT WITHIN REACH.
--- NOTE | 2020-10-22 14:55 | NUR ---
CXR REVIEWED BY THIS NURSE PRIOR TO DISCHARGE, REVIEWED FINDINGS PER RADIOLOGIST NO PNUEMOTHORAX NOTED
--- NOTE | 2020-10-22 15:00 | NUR ---
PT DISCHARGED ORDERED , DISCHARGE INSTRUCTIONS REVIEWED WITH PT AND SPOUSE VERBALIIZED UNDERSTANDING. QUESTIONS AND CONCERNS ADDRESSED. TAKEN TO FAMILY CARE VIA WHEELCHAIR
--- NOTE | 2020-10-22 15:03 | NUR ---
CXR REVIEWED BY THIS NURSE
--- NOTE | 2020-10-26 12:40 | OP ---
PATIENT NAME: RUI MUJICA MEDICAL RECORD: [id number] :49 LOCATION:D.CAT ADMISSION DATE: SURGEON: GINO SETH MD DATE OF OPERATION: 10/22/2020 PREOPERATIVE DIAGNOSIS: Sick sinus syndrome with pauses. POSTOPERATIVE DIAGNOSIS: Sick sinus syndrome with pauses. PROCEDURE: 1. Left subclavian vein dual-lead pacemaker placement. 2. Fluoroscopic interpretation. SURGEON: Gino Seth MD COSURGEON: Larry Downey MD DESCRIPTION OF PROCEDURE: The patient's left chest was prepped and draped in sterile fashion. A 20 mL of 1% lidocaine with epinephrine was infused into the surrounding tissues. A transverse incision was made on the left superior lateral chest and a subcutaneous pouch was made over the pectoral fascia. [place] were used to cannulate the left subclavian vein and guidewires were advanced with ease. Fluoroscopy was used to note that the wires were in good position in the venous system. Dilator trocar devices were placed over the wires and the wires and dilators were removed. The leads were advanced through the trocars until they rested in the superior vena cava. At this point, Dr. Downey positioned the leads appropriately in the atrium and ventricle. Once they were noted to be functioning appropriately, then the leads were sutured into place with 2-0 Ti-Cron. The leads were then affixed to the pacemaker, which was placed into the subcutaneous pouch and sutured to the pectoral fascia with single interrupted 2-0 Ti-Cron. The wound was then irrigated out with antibiotic solution. The subcutaneous tissues were reapproximated with interrupted 3-0 Vicryl and the skin was closed with running subcutaneous 5-0 Monocryl. COMPLICATIONS: None. ANESTHESIA: Local MAC. BLOOD LOSS: Minimal. TRANSINT:[id number] Voice Confirmation ID: [id number] DOCUMENT ID: [id number] GINO SETH MD at 1240 CC: [id number] DICTATION DATE: 10/22/20 1353 CLEANING MAID: 10/22/20 1612 [facility] 10/22/20 [place] [address]
--- NOTE | 2020-10-26 16:09 | OP ---
PATIENT NAME: RUI THRASHER MEDICAL RECORD: [id number] :49 LOCATION:D.CAT ADMISSION DATE: SURGEON: CASPER RICK MD DATE OF OPERATION: 10/22/2020 PROCEDURE: Lead portion of permanent pacemaker placement. SURGEON: Krystian Swanson MD INDICATIONS: Sick sinus syndrome with pauses and PAF. DESCRIPTION OF PROCEDURE: After left subclavian was cannulated via modified Seldinger technique via Dr. Swanson first under fluoroscopic guidance, I placed the RV lead in the RV apex without any difficulty. After adequate thresholds and R waves were obtained, the right atrial lead was placed in the right atrial appendage without difficulty. After adequate resistance and fibrillatory waves were obtained, the leads were attached to appropriate poles of the generator and pocket was closed via Dr. Swanson. IMPRESSION: Successful lead portion of permanent pacemaker placement on Rui Thrasher. ESTIMATED BLOOD LOSS: Minimal. DISPOSITION: To the floor, stable. COMPLICATIONS: None. TRANSINT:[id number] Voice Confirmation ID: [id number] DOCUMENT ID: [id number] CASPER RICK MD at 1609 CC: [id number] DICTATION DATE: 10/22/20 1352 ROBOTICS TESTING TECHNICIAN: 10/22/20 1609 [facility] 10/22/20 [place] [id number] [place] [address]
--- NOTE | 2020-10-26 16:09 | HP ---
PATIENT: RUI MUJICA MEDICAL RECORD: [id number] ACCOUNT: [id number] LOCATION:AMIRAH : 49 ADMISSION DATE: 10/22/20 PCP: RUI HUNTER MD HISTORY AND PHYSICAL EXAMINATION HISTORY OF PRESENT ILLNESS: A 74-year-old gentleman with a history of atrial fibrillation status post ablation. He has had intermittent fatigue, tiredness, underwent event monitor which showed significant pauses, being brought to the phlebotomist medical lab assistant for a permanent pacemaker placement. PAST MEDICAL HISTORY: Includes; 1. History of atrial fibrillation status post ablation. 2. Hypertension. 3. Hyperlipidemia. 4. Obstructive coronary artery disease. PHYSICAL EXAMINATION: GENERAL: Well-developed, appears in no acute distress. HEENT: Normocephalic, atraumatic. NECK: No JVD or bruit. CARDIOVASCULAR: Regular, rate is controlled. LUNGS: Fair excursion. ABDOMEN: Soft, nontender. EXTREMITIES: Pulses are 2+ with no edema. Event monitor as described above. PLAN: For permanent pacemaker placement. TRANSINT:[id number] Voice Confirmation ID: [id number] DOCUMENT ID: [id number] CASPER RICK MD at 1609 CC: [id number] DICTATION DATE: 10/22/20 1354 EVAPORATOR HELPER: 10/22/20 1506 [facility] 10/22/[address] [address]
== END 2020-10-22 15:00 | disposition home or self-care (01) ==
LOC: D.CATH 12:25
PROVIDERS: ATTEND Internal Medicine Interventional Cardiology
DX: I49.5 Sick sinus syndrome (principal); I48.91 Unspecified atrial fibrillation; R53.83 Other fatigue; I10 Essential (primary) hypertension; E78.5 Hyperlipidemia, unspecified; I25.10 Atherosclerotic heart disease of native coronary artery without angina pectoris